=== PATIENT | female | born 1980 | race Caucasian/White ===

== ENCOUNTER 2016-05-02 09:07 | Emergency (ER) | payer OTHER ==
[2016-05-02 09:13] VITALS: BP 127/77; PULSE 76; TEMP 98.6; BMI 27.4
[2016-05-02] MEDS ORDERED: predniSONE 20 MG TABLET (UD) PO ONE (10:20)
[2016-05-02] MEDS ORDERED: RANITIDINE HCL 150 MG TABLET (FP) PO ONE (10:20)
[2016-05-02] MEDS ORDERED: diphenhydrAMINE HCL 25 MG CAPSULE (FP) PO ONE ×2 (10:21→10:24)
[2016-05-02] MEDS ORDERED: predniSONE 20 MG TABLET (UD) ONE (10:24)
[2016-05-02] MEDS ORDERED: RANITIDINE HCL 150 MG TABLET (FP) ONE (10:24)
--- NOTE | 2016-05-02 10:26 | PDOC ---
History of Present Illness - General Chief Complaint: Allergic Reaction Stated Complaint: REACTION ALL OVER BODY Time Seen by Provider: 05/02/16 09:24 History Source: Patient Exam Limitations: No Limitations - History of Present Illness Initial Comments: 05/02/16 10:23 Chief complaint: Generalized rash 3 days itchy History of present illness: Patient is a 35-year-old female with no significant medical history here today complaining of an generalized pruritic rash 3 days. Patient denies any new foods, medications, soaps or any new cosmetics or clothing. Patient reports that this is the first time that she has had a rash like this. Patient denies any difficulty swallowing or breathing, nasal congestion, fever, cough or any other symptoms. Patient denies any chance of had her menstrual cycle last week and is on oral contraceptives. She denies being around any sick contacts or any recent travel. Timing/Duration: constant (3 dayus ) Severity: moderate Associated Symptoms: reports: rash (pruritic rash generalized for 3 days ) Past History - Past Medical History Allergies/Adverse Reactions: Allergies Allergy/AdvReac Type Severity Reaction Status Date / Time No Known Allergies Allergy Verified 05/02/16 09:10 Home Medications: Ambulatory Orders Diphenhydramine HCl [Benadryl -] 25 mg PO Q4H PRN #30 capsule 05/02/16 Prednisone [Deltasone] 20 mg PO BID #8 tablet 05/02/16 Ranitidine [Zantac -] 150 mg PO BID #8 tablet 05/02/16 Other medical history: none - Psycho/Social/Smoking Cessation Hx Anxiety: No Suicidal Ideation: No Smoking History: Never smoked Have you smoked in the past 12 months: No Information on smoking cessation initiated: No Hx Alcohol Use: No Drug/Substance Use Hx: No Substance Use Type: None Review of Systems - Review of Systems Able to Perform ROS?: Yes Constitutional: No: Symptoms Reported HEENTM: No: Symptoms Reported Respiratory: No: Symptoms reported Cardiac (ROS): No: Symptoms Reported ABD/GI: No: Symptoms Reported Musculoskeletal: No: Symptoms Reported Integumentary: Yes: Pruritus, Rash (generalized for 3 days) Neurological: No: Symptoms reported *Physical Exam - Vital Signs Last Vital Signs Temp Pulse Resp BP Pulse Ox 98.6 F 76 18 127/77 100 05/02/16 09:10 05/02/16 09:10 05/02/16 09:10 05/02/16 09:10 05/02/16 09:10 - Physical Exam General Appearance: Yes: Appropriately Dressed HEENT: positive: TMs Normal, Pharyngeal Erythema, Tonsillar Erythema (no uvular deviation ). negative: Tonsillar Exudate Neck: negative: Lymphadenopathy (R), Lymphadenopathy (L) Respiratory/Chest: positive: Lungs Clear, Normal Breath Sounds. negative: Chest Tender, Respiratory Distress Cardiovascular: positive: Regular Rhythm, Regular Rate, S1, S2 Integumentary: positive: Rash (generalized non raised rash ) Neurologic: positive: Alert, Normal Response, Responsive Medical Decision Making - Medical Decision Making 05/02/16 10:25 Patient is a 35-year-old female with no significant medical history here today complaining of an generalized pruritic rash 3 days. Patient denies any new foods, medications, soaps or any new cosmetics or clothing. Patient reports that this is the first time that she has had a rash like this. Patient denies any difficulty swallowing or breathing, nasal congestion, fever, cough or any other symptoms. Patient denies any chance of had her menstrual cycle last week and is on oral contraceptives. She denies being around any sick contacts or any recent travel. Generalized pruritic rash PLAN: Prednisone 60 mg by mouth now then 20 mg twice a day for following 4 days Benadryl 25 mg by mouth now then every 6 hours as needed for itchiness Zantac 150 milligrams by mouth now then twice a day for following 4 days Follow-up with Dr. Boyd ear nose and throat for allergy testing 05/02/16 11:44 feeling better decreased rash and pruritis *DC/Admit/Observation/Transfer Diagnosis at time of Disposition: Urticaria - Discharge Dispostion Disposition: HOME Condition at time of disposition: Stable - Referrals Referrals: Mark Boyd MD [Staff Physician] - - Patient Instructions Additional Instructions: Return to emergency room if any difficulty breathing or swallowing Follow-up with ear nose and throat Dr. Boyd for testing for allergies Patient voiced understanding of discharge instructions and all questions were answered
== END 2016-05-02 11:52 | disposition home or self-care (01) ==
LOC: JERFT 09:07
DX: L50.9 Urticaria, unspecified (principal)
CPT/HCPCS: 87070; 87430; 99281-25

== ENCOUNTER 2017-03-29 13:35 | Inpatient (IN) | payer SELFPAY ==
--- NOTE | 2017-03-29 15:34 | PDOC ---
History of Present Illness - General Chief Complaint: Pain Stated Complaint: VOMITING Time Seen by Provider: 03/29/17 15:17 History Source: Patient - History of Present Illness Initial Comments: 03/29/17 15:31 Patient is a 36 y.o. female with a PMH of PUD who presents to our ED c/o 1 day h /o R flank pain that radiates to her RLQ. Patient endorses associated emesis ( 6x, greenish colored) but denies any dsyuria, hematuria, constipation/diarrhea. Patient's LMP was in February 2017. NKDA Surgical: C/S PMD: None, will refer to IM Clinic 03/29/17 15:35 Past History - Past Medical History Allergies/Adverse Reactions: Allergies Allergy/AdvReac Type Severity Reaction Status Date / Time No Known Allergies Allergy Verified 03/29/17 13:39 Home Medications: Ambulatory Orders Diphenhydramine HCl [Benadryl -] 25 mg PO Q4H PRN #30 capsule 05/02/16 Prednisone [Deltasone] 20 mg PO BID #8 tablet 05/02/16 Ranitidine [Zantac -] 150 mg PO BID #8 tablet 05/02/16 COPD: No GI Disorders: Yes (ULCERS.) - Surgical History Abdominal Surgery: Yes - Suicide/Smoking/Psychosocial Hx Smoking History: Never smoked Have you smoked in the past 12 months: No Hx Alcohol Use: No Drug/Substance Use Hx: No Substance Use Type: None Review of Systems - Review of Systems Constitutional: No: Chills, Fever Respiratory: No: Shortness of Breath Cardiac (ROS): No: Chest Pain ABD/GI: Yes: Vomiting. No: Constipated, Diarrhea, Nausea : No: Burning, Dysuria *Physical Exam - Vital Signs Last Vital Signs Temp Pulse Resp BP Pulse Ox 99.1 F 76 18 133/82 100 03/29/17 13:39 03/29/17 13:39 03/29/17 13:39 03/29/17 13:39 03/29/17 13:39 - Physical Exam General Appearance: Yes: Nourished, Appropriately Dressed Neck: positive: Trachea midline, Supple Respiratory/Chest: positive: Lungs Clear Cardiovascular: positive: S1, S2 Gastrointestinal/Abdominal: positive: Normal Bowel Sounds, Tender (RUQ/RLQ TTP) , Soft Extremity: positive: Normal Capillary Refill, Normal Inspection Neurologic: positive: Fully Oriented, Alert ED Treatment Course - LABORATORY CBC & Chemistry Diagram: 03/29/17 15:36 03/29/17 15:55 Medical Decision Making - Medical Decision Making 03/29/17 15:41 Patient is a 36 y.o. female wiht a PMH of PUD who presents to our ED c/o 1 day h /o R flank pain that radiates to her RLQ w/associated emesis. Initial clinical suspicion for nephrolithiasis, ddx includes ovarian pathology vs. acute abdomen (cholecystitis, appendicitis). Will hydrate + Toradol and reasess. Bedside U/S shows cholelithiasis with normal sized CBD - no posterior wall edema. Formal U/S confirms cholecystitis. Case d/w general surgery. Patient admitted to hospitalist for planned cholecystectomy tomorrow. IV Zosyn + NPO. Patient and patient's family counseled on plan of care. Will continue to monitor patient while in ED. Patient signed out to Dr. Elie Tyler for monitoring while pending transfer to inpatient medicine service. *DC/Admit/Observation/Transfer Diagnosis at time of Disposition: Cholecystitis - Discharge Dispostion Condition at time of disposition: Fair Admit: Yes - Referrals - Patient Instructions - Post Discharge Activity
[2017-03-29] MEDS ORDERED: KETOROLAC TROMETHAMINE 15 MG/ML VIAL IVPUSH ONE (15:36)
[2017-03-29] MEDS ORDERED: SODIUM CHLORIDE 0.9% 1000 ML INFUS.BAG IV ONE (15:39)
[2017-03-29] MEDS ORDERED: KETOROLAC TROMETHAMINE 15 MG/ML VIAL ONE (15:45)
[2017-03-29 16:21] LABS: BASO % 0.4 % (0-2.0); HEMATOCRIT 28.5 % (32.4-45.2); HEMOGLOBIN 8.5 GM/dL (10.7-15.3); LYMPH % 9.1 % (8-40); MEAN CELL VOLUME 62.6 fl (80-96); MEAN PLT VOLUME 8.8 fl (7.5-11.1); MONO % 5.5 % (3.8-10.2); PLATELET COUNT 442 K/MM3 (134-434); RBC 4.55 M/mm3 (3.60-5.2); WHITE BLOOD COUNT 18.8 K/mm3 (4.0-10.0)
[2017-03-29 16:27] LABS: MCH 18.8 pg (25.7-33.7)
[2017-03-29 16:28] LABS: ADD RBC MORPHOLOGY YES
[2017-03-29 16:31] LABS: ANION GAP 10 (8-16); BLOOD UREA NITROGEN 11 mg/dL (7-18); CALCIUM 8.9 mg/dL (8.5-10.1); CHLORIDE 102 mmol/L (98-107); CO2 27 mmol/L (21-32); CREATININE 0.5 mg/dL (0.55-1.02); GLUCOSE,RANDOM 83 mg/dL (74-106); POTASSIUM 3.5 mmol/L (3.5-5.1); SGOT/AST 11 U/L (15-37); SGPT/ALT 27 U/L (12-78); SODIUM 139 mmol/L (136-145)
[2017-03-29 16:33] LABS: ALK PHOS 85 U/L (45-117); BILIRUBIN,TOTAL 0.3 mg/dL (0.2-1.0); TOT PROT 8.1 g/dl (6.4-8.2)
--- NOTE | 2017-03-29 17:03 | PDOC ---
Attending Attestation - Resident Resident Name: Adri Polanco - ED Attending Attestation I have performed the following: I have examined & evaluated the patient, The case was reviewed & discussed with the resident, I agree w/resident's findings & plan, Exceptions are as noted - HPI HPI: 03/29/17 16:55 36 F with h/o PUD presenting to ER with 1 day of RUQ pain radiating to her R flank. Pt reports several episodes of bilious emesis. Denies diarrhea/ constipation. Pt denies dysuria. Denies CP/SOB. Denies F/C. - Physicial Exam PE: 03/29/17 17:26 "GENERAL: Awake, alert, and fully oriented, in no acute distress HEAD: No signs of trauma EYES: PERRLA, EOMI, sclera anicteric, conjunctiva clear ENT: Auricles normal inspection, hearing grossly normal, nares patent, oropharynx clear without exudates. Moist mucosa NECK: Nontender, no stepoffs, Normal ROM, supple, no lymphadenopathy, JVD, or masses LUNGS: Breath sounds equal, clear to auscultation bilaterally. No wheezes, and no crackles HEART: Regular rate and rhythm, normal S1 and S2, no murmurs, rubs or gallops ABDOMEN: + lopez's, nondistended, soft, normoactive bowel sounds, no CVAT EXTREMITIES: Normal range of motion, no edema. No clubbing or cyanosis. No cords, erythema, or tenderness NEUROLOGICAL: Cranial nerves II through XII intact. 5/5 strength and sensation in all extremities, Normal speech, normal gait SKIN: Warm, Dry, normal turgor, no rashes or lesions noted. " - Medical Decision Making 03/29/17 17:27 36 F with RUQ pain + N/V. + lopez's on exam, concerning for cholelithiasis vs cholecystitis. - Labs - RUQ sono 03/29/17 17:53 US shows acute cholecystitis. Surgery consulted Will admit to hospitalist. Pt made NPO, maintenance fluids ordered, Zosyn administered.
[2017-03-29] MEDS ORDERED: PIPERACILLIN/TAZOB 4.5 GM 4.5 GM/100 ML BAG IVPB ONE ×2 (17:52→18:20)
[2017-03-29] MEDS: SODIUM CHLORIDE 1,000 ML IV SCH (18:14)
[2017-03-29 18:55] LABS: URINE APPEARANCE CLEAR; URINE BILIRUBIN NEGATIVE (NEGATIVE); URINE BLOOD NEGATIVE (NEGATIVE); URINE COLOR STRAW; URINE GLUCOSE (UA) NEGATIVE (NEGATIVE); URINE KETONE 1+ (NEGATIVE); URINE LEUK ESTERASE NEGATIVE (NEGATIVE); URINE NITRITE NEGATIVE (NEGATIVE); URINE PROTEIN NEGATIVE (NEGATIVE); URINE UROBILINOGEN NEGATIVE mg/dL (0.2-1.0)
[2017-03-29 18:57] LABS: INR 1.13 (0.82-1.09); PROTHROMBIN TIME (PATIENT) 12.8 SEC (9.98-11.88)
[2017-03-29 19:00] LABS: ACTIVATED PTT 29.9 SECONDS (26.9-34.4)
--- NOTE | 2017-03-29 19:12 | PN ---
Teaching Attending Note Name of Resident: Ann Marie Varela ATTENDING PHYSICIAN STATEMENT I saw and evaluated the patient. I reviewed the resident's note and discussed the case with the resident. I agree with the resident's findings and plan as documented. SUBJECTIVE: 36 yo F with pmhx of PUD who presents with RLQ abdominal pain, which originated in her R. Flank. States she had emesis times six. Denies any fevers or chills. States abdominal pain has improved as did her nausea. No chest pain or pressure. No fevers or chills. OBJECTIVE: Physical: VS: Vital Signs Period Temp Pulse Resp BP Sys/Horner Pulse Ox Last 24 Hr 99.1 F 76 18 133/82 100 GEN: NAD, Resting in bed, AA0X3 HEENT: NCAT, PERRL, throat without erythema or exudates CARD: RRR S1, S2 RESP: CTAB ABD: BSx4, NTD to palpation EXT: - C/C/E CBCD WBC 18.8 K/mm3 (4.0-10.0) H 03/29/17 15:36 RBC 4.55 M/mm3 (3.60-5.2) 03/29/17 15:36 Hgb 8.5 GM/dL (10.7-15.3) L 03/29/17 15:36 Hct 28.5 % (32.4-45.2) L 03/29/17 15:36 MCV 62.6 fl (80-96) L 03/29/17 15:36 MCHC 30.0 g/dl (32.0-36.0) L 03/29/17 15:36 RDW 19.0 % (11.6-15.6) H 03/29/17 15:36 Plt Count 442 K/MM3 (134-434) H 03/29/17 15:36 MPV 8.8 fl (7.5-11.1) 03/29/17 15:36 CMP Sodium 139 mmol/L (136-145) 03/29/17 15:55 Potassium 3.5 mmol/L (3.5-5.1) 03/29/17 15:55 Chloride 102 mmol/L (98-107) 03/29/17 15:55 Carbon Dioxide 27 mmol/L (21-32) 03/29/17 15:55 Anion Gap 10 (8-16) 03/29/17 15:55 BUN 11 mg/dL (7-18) 03/29/17 15:55 Creatinine 0.5 mg/dL (0.55-1.02) L 03/29/17 15:55 Creat Clearance w eGFR > 60 (>60) 03/29/17 15:55 Random Glucose 83 mg/dL (74-106) 03/29/17 15:55 Calcium 8.9 mg/dL (8.5-10.1) 03/29/17 15:55 Total Bilirubin 0.3 mg/dL (0.2-1.0) 03/29/17 15:55 AST 11 U/L (15-37) L 03/29/17 15:55 ALT 27 U/L (12-78) 03/29/17 15:55 Alkaline Phosphatase 85 U/L (45-117) 03/29/17 15:55 Total Protein 8.1 g/dl (6.4-8.2) 03/29/17 15:55 Albumin 4.0 g/dl (3.4-5.0) 03/29/17 15:55 Abd US- Acute Choleycystitis ASSESSMENT AND PLAN: 36 F with pmhx. of PUD who presents with acute choleycystitis 1.) Acute Choleycystitis - NPO - Type & Screen - C/W Zosyn - ID consult - Coags - Cx - Surgical Consult - IVF 2.) Microcytic Anemia - Fe Studies - Transfuse <7 3.) DVT Ppx - Low Risk - Sc[facility] Place in Med- Sx
[2017-03-29 20:13] LABS: ANISOCYTOSIS 2+
[2017-03-29 20:14] LABS: OVALOCYTE 1+; TARGET CELLS 1+
[2017-03-29 20:15] LABS: PLATELET ESTIMATE SLT INCREASE
--- NOTE | 2017-03-29 21:05 | HP ---
CHIEF COMPLAINT: RUQ pain, nausea, vomiting PCP: None HISTORY OF PRESENT ILLNESS: Pt is a 36 y/o F with PMH recently treated gastric ulcer who presented to ED with RUQ pain initially 9/10 radiating to the back constant since 6pm yesterday. Pt had subjective fevers and numerous episodes of green vomit without blood. No other complaints. Denies CP, SOB, dysuria, bloody urine/stools. ER course was notable for: (1) WBC 18, Hb 8.5, plt 442, INR 1.1, UA 1+ ketones, Preg neg (2) U/S suggestive of cholecystitis (3)Pt made NPO, given fluid and zosyn Recent Travel: denies PAST MEDICAL HISTORY: per pt, gastric ulcer PAST SURGICAL HISTORY: none Social History: Smoking: denies Alcohol: denies Drugs: denies Family History: denies Allergies No Known Allergies Allergy (Verified 03/29/17 13:39) HOME MEDICATIONS: Home Medications Medication Instructions Recorded Diphenhydramine HCl [Benadryl -] 25 mg PO Q4H PRN #30 capsule 05/02/16 Prednisone [Deltasone] 20 mg PO BID #8 tablet 05/02/16 Ranitidine [Zantac -] 150 mg PO BID #8 tablet 05/02/16 REVIEW OF SYSTEMS CONSTITUTIONAL: subjective fever, malaise Absent: chills, diaphoresis, generalized weakness, loss of appetite, weight change HEENT: Absent: rhinorrhea, nasal congestion, throat pain, throat swelling, difficulty swallowing, mouth swelling, ear pain, eye pain, visual changes CARDIOVASCULAR: Absent: chest pain, syncope, palpitations, irregular heart rate, lightheadedness , peripheral edema RESPIRATORY: Absent: cough, shortness of breath, dyspnea with exertion, orthopnea, wheezing, stridor, hemoptysis GASTROINTESTINAL:abdominal pain, nausea, vomiting Absent: , abdominal distension, diarrhea, constipation, melena, hematochezia GENITOURINARY: Absent: dysuria, frequency, urgency, hesitancy, hematuria, flank pain, genital pain MUSCULOSKELETAL: Absent: myalgia, arthralgia, joint swelling, back pain, neck pain SKIN: Absent: rash, itching, pallor HEMATOLOGIC/IMMUNOLOGIC: Absent: easy bleeding, easy bruising, lymphadenopathy, frequent infections ENDOCRINE: Absent: unexplained weight gain, unexplained weight loss, heat intolerance, cold intolerance NEUROLOGIC: Absent: headache, focal weakness or paresthesias, dizziness, unsteady gait, seizure, mental status changes, bladder or bowel incontinence PSYCHIATRIC: Absent: anxiety, depression, suicidal or homicidal ideation, hallucinations. PHYSICAL EXAMINATION Vital Signs - 24 hr 03/29/17 13:39 Temperature 99.1 F Pulse Rate 76 Respiratory 18 Rate Blood Pressure 133/82 O2 Sat by Pulse 100 Oximetry (%) GENERAL: Awake, alert, and fully oriented, in no acute distress. HEAD: Normal with no signs of trauma. EYES: Pupils equal, round and reactive to light, extraocular movements intact, sclera anicteric, conjunctiva clear. No lid lag. EARS, NOSE, THROAT: oropharynx clear without exudates. Moist mucous membranes. NECK: Normal range of motion, supple without lymphadenopathy, JVD, or masses. LUNGS: Breath sounds equal, clear to auscultation bilaterally. No wheezes, and no crackles. No accessory muscle use. HEART: Regular rate and rhythm, normal S1 and S2 with 4/6 systolic cresc/ decresc murmur at RUSB, no rub or gallop. ABDOMEN: Soft, mildly tender RUQ, Pena's neg, not distended, normoactive bowel sounds, no guarding, no rebound, no masses. No hepatomegaly or splenomegaly. MUSCULOSKELETAL: Normal range of motion at all joints. No bony deformities or tenderness. No CVA tenderness. UPPER EXTREMITIES: 2+ pulses, warm, well-perfused. No cyanosis. No clubbing. No peripheral edema. LOWER EXTREMITIES: 2+ pulses, warm, well-perfused. No calf tenderness. No peripheral edema. NEUROLOGICAL: Cranial nerves II-XII intact. Normal speech. PSYCHIATRIC: Cooperative. Good eye contact. Appropriate mood and affect. SKIN: Warm, dry, normal turgor, no rashes or lesions noted, normal capillary refill. Laboratory Results - last 24 hr 03/29/17 03/29/17 03/29/17 15:36 15:55 17:10 WBC 18.8 H RBC 4.55 Hgb 8.5 L Hct 28.5 L MCV 62.6 L MCH 18.8 L MCHC 30.0 L RDW 19.0 H Plt Count 442 H MPV 8.8 Neutrophils % 85.0 H Lymphocytes % 9.1 Monocytes % 5.5 Eosinophils % 0.0 Basophils % 0.4 Hypochromia 3+ Platelet Estimate Slt increase Platelet Comment Polychromasia 1+ Poikilocytosis 1+ Anisocytosis 2+ Microcytosis 2+ Target Cells 1+ Ovalocytes 1+ PT with INR INR PTT (Actin FS) Sodium 139 Potassium 3.5 Chloride 102 Carbon Dioxide 27 Anion Gap 10 BUN 11 Creatinine 0.5 L Creat Clearance w eGFR > 60 Random Glucose 83 Calcium 8.9 Total Bilirubin 0.3 AST 11 L ALT 27 Alkaline Phosphatase 85 Total Protein 8.1 Albumin 4.0 Lipase Serum , Qual Negative Urine Color Urine Appearance Urine pH Ur Specific [place] Urine Protein Urine Glucose (UA) Urine Ketones Urine Blood Urine Nitrite Urine Bilirubin Urine Urobilinogen Ur Leukocyte Esterase Blood Type Antibody Screen 03/29/17 03/29/17 03/29/17 17:43 17:43 18:12 WBC RBC Hgb Hct MCV MCH MCHC RDW Plt Count MPV Neutrophils % Lymphocytes % Monocytes % Eosinophils % Basophils % Hypochromia Platelet Estimate Platelet Comment Polychromasia Poikilocytosis Anisocytosis Microcytosis Target Cells Ovalocytes PT with INR 12.80 H INR 1.13 PTT (Actin FS) 29.9 Sodium Potassium Chloride Carbon Dioxide Anion Gap BUN Creatinine Creat Clearance w eGFR Random Glucose Calcium Total Bilirubin AST ALT Alkaline Phosphatase Total Protein Albumin Lipase 94 Serum , Qual Urine Color Urine Appearance Urine pH Ur Specific [place] Urine Protein Urine Glucose (UA) Urine Ketones Urine Blood Urine Nitrite Urine Bilirubin Urine Urobilinogen Ur Leukocyte Esterase Blood Type O POSITIVE Antibody Screen Negative 03/29/17 18:17 WBC RBC Hgb Hct MCV MCH MCHC RDW Plt Count MPV Neutrophils % Lymphocytes % Monocytes % Eosinophils % Basophils % Hypochromia Platelet Estimate Platelet Comment Polychromasia Poikilocytosis Anisocytosis Microcytosis Target Cells Ovalocytes PT with INR INR PTT (Actin FS) Sodium Potassium Chloride Carbon Dioxide Anion Gap BUN Creatinine Creat Clearance w eGFR Random Glucose Calcium Total Bilirubin AST ALT Alkaline Phosphatase Total Protein Albumin Lipase Serum , Qual Urine Color Straw Urine Appearance Clear Urine pH 6.0 Ur Specific [place] 1.008 Urine Protein Negative Urine Glucose (UA) Negative Urine Ketones 1+ H Urine Blood Negative Urine Nitrite Negative Urine Bilirubin Negative Urine Urobilinogen Negative Ur Leukocyte Esterase Negative Blood Type Antibody Screen ASSESSMENT/PLAN: Pt is a 36 y/o F with PMH gastric ulcer who presents to ED with RUQ abdominal pain associated with nausea and vomiting. U/S consistent with acute cholecystitis. #Acute cholecystitis -U/S significant for cholecystitis -lipase negative -CBC -CMP -PT/PTT -CXR -Type and Screen -NPO -NS -Protonix -zosyn in ED -surg consult #fe deficiency -Fe studies -B12, folate #thrombocytosis -likely reactive -will follow #FEN -on NS -lytes wnl -NPO #PPx -No hep in pt possibly going for surg. SCDs #Dispo -Admit to Med/Surg Tim Moody MD PGY-1 IM Visit type - Emergency Visit Emergency Visit: Yes ED Registration Date: 03/29/17 Care time: The patient presented to the Emergency Department on the above date and was hospitalized for further evaluation of their emergent condition. - New Patient This patient is new to me today: Yes Date on this admission: 03/29/17 - Critical Care Critical Care patient: No
[2017-03-29] MEDS ORDERED: FOLIC ACID 1 MG TABLET (FP) PO ONE (22:45)
[2017-03-29] MEDS ORDERED: CYANOCOBALAMIN (VITAMIN B-12) 1000 MCG/1 ML VIAL IM ONE (22:45)
[2017-03-29] MEDS ORDERED: ACETAMINOPHEN 325 MG TABLET (FP) PO PRN (23:15)
[2017-03-30 01:26] VITALS: BMI 26.4
[2017-03-30] MEDS ORDERED: PIPERACILLIN/TAZOB 3.375 GM 50 ML IVPB ONE ×2 (01:38→08:30)
[2017-03-30] MEDS ORDERED: PIPERACILLIN/TAZOB 3.375 GM 3.375 GM in DEXTROSE 5%-WATER - 100 ML IVPB ONE (02:15)
[2017-03-30] MEDS: SODIUM CHLORIDE 1,000 ML IV SCH ×2 (06:07→18:15)
--- NOTE | 2017-03-30 07:28 | MSN ---
Progress Note (short form) - Note Progress Note: Subjective: Patient was seen this morning and has no complaints. Patient denies abdominal pain, chest pain, nausea or vomiting. Patient states she had a little diarrhea. Per nursing, there was no overnight event, patient had a little abdominal pain which was managed with tylenol. Objective: Last Vital Signs Temp Pulse Resp BP Pulse Ox 99.0 F 87 18 118/71 100 03/30/17 06:00 03/30/17 06:00 03/30/17 06:00 03/30/17 06:00 03/29/17 13:39 Intake & Output 03/27/17 03/28/17 03/29/17 03/30/17 23:59 23:59 23:59 23:59 Intake Total 50 1100 Balance 50 1100 Weight 159 lb 1 oz General: Patient is resting comfortably, in no apparent distress HEENT: PERRLA, nose patent, trachea midline, moist mucous membranes. Heart: RRR, no rubs, murmurs or gallops appreciated. Lungs: CTA B/L. No wheezing, crackles or rhonci appreciated. Abdomen: + [place]. Normoactive bowel sounds. Non-distended. Extremities: 2+ B/L on UE and LE. No edema noted. 5/5 strength throughout. CBC, BMP 03/30/17 07:15 03/30/17 07:15 Laboratory Results - last 24 hr 03/29/17 03/29/17 03/29/17 15:36 15:55 17:10 WBC 18.8 H RBC 4.55 Hgb 8.5 L Hct 28.5 L MCV 62.6 L MCH 18.8 L MCHC 30.0 L RDW 19.0 H Plt Count 442 H MPV 8.8 Neutrophils % 85.0 H Lymphocytes % 9.1 Monocytes % 5.5 Eosinophils % 0.0 Basophils % 0.4 Hypochromia 3+ Platelet Estimate Slt increase Platelet Comment Polychromasia 1+ Poikilocytosis 1+ Anisocytosis 2+ Microcytosis 2+ Target Cells 1+ Ovalocytes 1+ PT with INR INR PTT (Actin FS) Sodium 139 Potassium 3.5 Chloride 102 Carbon Dioxide 27 Anion Gap 10 BUN 11 Creatinine 0.5 L Creat Clearance w eGFR > 60 Random Glucose 83 Lactic Acid Calcium 8.9 Total Bilirubin 0.3 AST 11 L ALT 27 Alkaline Phosphatase 85 Total Protein 8.1 Albumin 4.0 Lipase Serum , Qual Negative Urine Color Urine Appearance Urine pH Ur Specific [place] Urine Protein Urine Glucose (UA) Urine Ketones Urine Blood Urine Nitrite Urine Bilirubin Urine Urobilinogen Ur Leukocyte Esterase Blood Type Antibody Screen 03/29/17 03/29/17 03/29/17 17:43 17:43 18:12 WBC RBC Hgb Hct MCV MCH MCHC RDW Plt Count MPV Neutrophils % Lymphocytes % Monocytes % Eosinophils % Basophils % Hypochromia Platelet Estimate Platelet Comment Polychromasia Poikilocytosis Anisocytosis Microcytosis Target Cells Ovalocytes PT with INR 12.80 H INR 1.13 PTT (Actin FS) 29.9 Sodium Potassium Chloride Carbon Dioxide Anion Gap BUN Creatinine Creat Clearance w eGFR Random Glucose Lactic Acid Calcium Total Bilirubin AST ALT Alkaline Phosphatase Total Protein Albumin Lipase 94 Serum , Qual Urine Color Urine Appearance Urine pH Ur Specific [place] Urine Protein Urine Glucose (UA) Urine Ketones Urine Blood Urine Nitrite Urine Bilirubin Urine Urobilinogen Ur Leukocyte Esterase Blood Type O POSITIVE Antibody Screen Negative 03/29/17 03/30/17 18:17 02:00 WBC RBC Hgb Hct MCV MCH MCHC RDW Plt Count MPV Neutrophils % Lymphocytes % Monocytes % Eosinophils % Basophils % Hypochromia Platelet Estimate Platelet Comment Polychromasia Poikilocytosis Anisocytosis Microcytosis Target Cells Ovalocytes PT with INR INR PTT (Actin FS) Sodium Potassium Chloride Carbon Dioxide Anion Gap BUN Creatinine Creat Clearance w eGFR Random Glucose Lactic Acid 0.6 Calcium Total Bilirubin AST ALT Alkaline Phosphatase Total Protein Albumin Lipase Serum , Qual Urine Color Straw Urine Appearance Clear Urine pH 6.0 Ur Specific [place] 1.008 Urine Protein Negative Urine Glucose (UA) Negative Urine Ketones 1+ H Urine Blood Negative Urine Nitrite Negative Urine Bilirubin Negative Urine Urobilinogen Negative Ur Leukocyte Esterase Negative Blood Type Antibody Screen Home Medications Medication Instructions Recorded Diphenhydramine HCl [Benadryl -] 25 mg PO Q4H PRN #30 capsule 05/02/16 Prednisone [Deltasone] 20 mg PO BID #8 tablet 05/02/16 Ranitidine [Zantac -] 150 mg PO BID #8 tablet 05/02/16 Active Medications Acetaminophen (Tylenol -) 325 mg PO Q4H PRN PRN Reason: PAIN OR FEVER Sodium Chloride (Normal Saline -) 1,000 mls @ 100 mls/hr IV ASDIR CARMEN Last Admin: 03/30/17 06:07 Dose: 100 mls/hr Piperacillin/Tazobactam/Dextrose (Zosyn 3.375gm Ivpb (Premix)) 3.375 gm IVPB ONCE ONE Stop: 03/30/17 10:01 Imaging: US abd 03/29/17: acute cholecystitis. calculous 3.2cm. Assessment/ Plan: 36 yo F with a PMH of anemia, gastric ulcer who presented with RUQ abd pain with 6 episodes of nonbilious vomiting was found to have acute calculous cholecystitis on US. # acute calculous cholecystitis - US shows 3.2cm calculous - Dr. Betancourt consulted for surgery - NPO - HIDA scan - coags - IVF NS @100mls/hr - protonix drip. # Microcytic hypochromic anemia- hx of anemia per patient - Fe studies - repeat CBC s/p cholecystectomy - transfuse if Hgb <7 # Thrombocytosis WBC 18.8 on admission - likely due to cholecystitis - continue to monitor #DVT prophylaxis - SCD FEN - fluid: Sodium Chloride (Normal Saline -) 1,000 mls @ 100 mls/hr IV ASDIR CARMEN - electrolyte: wnl - n: NPO due to surgery
[2017-03-30 08:26] LABS: BASO % 0.3 % (0-2.0); EOS % 0.1 % (0-4.5); HEMOGLOBIN 7.5 GM/dL (10.7-15.3); LYMPH % 10.8 % (8-40); MCHC 29.9 g/dl (32.0-36.0); MEAN CELL VOLUME 62.3 fl (80-96); MEAN PLT VOLUME 8.1 fl (7.5-11.1); MONO % 10.4 % (3.8-10.2); NEUT % 78.4 % (42.8-82.8); PLATELET COUNT 367 K/MM3 (134-434); RBC 4.01 M/mm3 (3.60-5.2); RDW 18.9 % (11.6-15.6); WHITE BLOOD COUNT 16.4 K/mm3 (4.0-10.0)
[2017-03-30 08:32] LABS: INR 1.19 (0.82-1.09); PROTHROMBIN TIME (PATIENT) 13.5 SEC (9.98-11.88)
[2017-03-30 08:35] LABS: ACTIVATED PTT 29.1 SECONDS (26.9-34.4)
[2017-03-30 08:39] LABS: ALBUMIN 3.1 g/dl (3.4-5.0); ANION GAP 11 (8-16); BLOOD UREA NITROGEN 7 mg/dL (7-18); CALCIUM 8.1 mg/dL (8.5-10.1); CHLORIDE 106 mmol/L (98-107); CO2 25 mmol/L (21-32); GLUCOSE,RANDOM 91 mg/dL (74-106); MAGNESIUM 1.8 mg/dL (1.8-2.4); PHOSPHOROUS 2.5 mg/dL (2.5-4.9); POTASSIUM 3.2 mmol/L (3.5-5.1); SGOT/AST 8 U/L (15-37); SODIUM 142 mmol/L (136-145)
[2017-03-30 08:42] LABS: ALK PHOS 66 U/L (45-117); BILIRUBIN,TOTAL 0.4 mg/dL (0.2-1.0); CREATININE 0.5 mg/dL (0.55-1.02); SGPT/ALT 20 U/L (12-78); TOT PROT 6.6 g/dl (6.4-8.2)
--- NOTE | 2017-03-30 08:46 | PN ---
Physical Exam: SUBJECTIVE: Patient seen and examined by me this AM - No overnight events. Pt still with RUQ pain, improved today. Multiple episodes of bilious emesis yesterday. No BM overnight, urinating well with no hematuria or pyuria. No other complaints. Denies fever/chills, CP, cough, LAW[place], further episodes of vomiting, diarrhea, constipation, rashes or new neuro symptoms. Pt with no complaints overnight. - Plan for HIDA scan in PM and possible cholecystectomy with Dr. Betancourt OBJECTIVE: Vital Signs Intake & Output 03/27/17 03/28/17 03/29/17 03/30/17 23:59 23:59 23:59 23:59 Intake Total 50 1100 Balance 50 1100 Weight 72.15 kg Period Temp Pulse Resp BP Sys/Horner Pulse Ox Last 24 Hr 99.0 F-100.3 F 76-87 -18 112-133/64-82 100 GENERAL: The patient is awake, alert, and fully oriented, in no acute distress. HEAD: Normal with no signs of trauma. EYES: PERRL, extraocular movements intact, sclera anicteric, conjunctiva clear. No ptosis. ENT: Ears normal, nares patent, oropharynx clear without exudates, moist mucous membranes. NECK: Trachea midline, full range of motion, supple. LUNGS: Breath sounds equal, clear to auscultation bilaterally, no wheezes, no crackles, no accessory muscle use. HEART: Regular rate and rhythm, S1, S2 without murmur, rub or gallop. ABDOMEN: TTP in RUQ. + murphys sign. Mild suprapubic tenderness. Negative rovsings. soft, NT in all other quadrants. Normoactive bowel sounds. No rebound , masses or organomegaly EXTREMITIES: 2+ pulses, warm, well-perfused, no edema. NEUROLOGICAL: Cranial nerves II through XII grossly intact. Normal speech, gait not observed. PSYCH: Normal mood, normal affect. SKIN: Warm, dry, normal turgor, no rashes or lesions noted Laboratory Results - last 24 hr CBC, BMP 03/30/17 07:15 03/29/17 03/29/17 03/29/17 15:36 15:55 17:10 WBC 18.8 H RBC 4.55 Hgb 8.5 L Hct 28.5 L MCV 62.6 L MCH 18.8 L MCHC 30.0 L RDW 19.0 H Plt Count 442 H MPV 8.8 Neutrophils % 85.0 H Lymphocytes % 9.1 Monocytes % 5.5 Eosinophils % 0.0 Basophils % 0.4 Hypochromia 3+ Platelet Estimate Slt increase Platelet Comment Polychromasia 1+ Poikilocytosis 1+ Anisocytosis 2+ Microcytosis 2+ Target Cells 1+ Ovalocytes 1+ PT with INR INR PTT (Actin FS) Sodium 139 Potassium 3.5 Chloride 102 Carbon Dioxide 27 Anion Gap 10 BUN 11 Creatinine 0.5 L Creat Clearance w eGFR > 60 Random Glucose 83 Lactic Acid Calcium 8.9 Phosphorus Magnesium Ferritin Total Bilirubin 0.3 AST 11 L ALT 27 Alkaline Phosphatase 85 Total Protein 8.1 Albumin 4.0 Lipase Serum , Qual Negative Urine Color Urine Appearance Urine pH Ur Specific [place] Urine Protein Urine Glucose (UA) Urine Ketones Urine Blood Urine Nitrite Urine Bilirubin Urine Urobilinogen Ur Leukocyte Esterase Blood Type Antibody Screen 03/29/17 03/29/17 03/29/17 17:43 17:43 18:12 WBC RBC Hgb Hct MCV MCH MCHC RDW Plt Count MPV Neutrophils % Lymphocytes % Monocytes % Eosinophils % Basophils % Hypochromia Platelet Estimate Platelet Comment Polychromasia Poikilocytosis Anisocytosis Microcytosis Target Cells Ovalocytes PT with INR 12.80 H INR 1.13 PTT (Actin FS) 29.9 Sodium Potassium Chloride Carbon Dioxide Anion Gap BUN Creatinine Creat Clearance w eGFR Random Glucose Lactic Acid Calcium Phosphorus Magnesium Ferritin Total Bilirubin AST ALT Alkaline Phosphatase Total Protein Albumin Lipase 94 Serum , Qual Urine Color Urine Appearance Urine pH Ur Specific [place] Urine Protein Urine Glucose (UA) Urine Ketones Urine Blood Urine Nitrite Urine Bilirubin Urine Urobilinogen Ur Leukocyte Esterase Blood Type O POSITIVE Antibody Screen Negative 03/29/17 03/30/17 03/30/17 18:17 02:00 07:15 WBC RBC Hgb Hct MCV MCH MCHC RDW Plt Count MPV Neutrophils % Lymphocytes % Monocytes % Eosinophils % Basophils % Hypochromia Platelet Estimate Platelet Comment Polychromasia Poikilocytosis Anisocytosis Microcytosis Target Cells Ovalocytes PT with INR INR PTT (Actin FS) Sodium 142 Potassium 3.2 L Chloride 106 Carbon Dioxide 25 Anion Gap 11 BUN 7 Creatinine 0.5 L Creat Clearance w eGFR > 60 Random Glucose 91 Lactic Acid 0.6 Calcium 8.1 L Phosphorus 2.5 Magnesium 1.8 Ferritin Total Bilirubin 0.4 D AST 8 L ALT 20 Alkaline Phosphatase 66 Total Protein 6.6 Albumin 3.1 L Lipase Serum , Qual Urine Color Straw Urine Appearance Clear Urine pH 6.0 Ur Specific [place] 1.008 Urine Protein Negative Urine Glucose (UA) Negative Urine Ketones 1+ H Urine Blood Negative Urine Nitrite Negative Urine Bilirubin Negative Urine Urobilinogen Negative Ur Leukocyte Esterase Negative Blood Type Antibody Screen 03/30/17 07:15 WBC RBC Hgb Hct MCV MCH MCHC RDW Plt Count MPV Neutrophils % Lymphocytes % Monocytes % Eosinophils % Basophils % Hypochromia Platelet Estimate Platelet Comment Polychromasia Poikilocytosis Anisocytosis Microcytosis Target Cells Ovalocytes PT with INR INR PTT (Actin FS) Sodium Potassium Chloride Carbon Dioxide Anion Gap BUN Creatinine Creat Clearance w eGFR Random Glucose Lactic Acid Calcium Phosphorus Magnesium Ferritin 3.880 L Total Bilirubin AST ALT Alkaline Phosphatase Total Protein Albumin Lipase Serum , Qual Urine Color Urine Appearance Urine pH Ur Specific [place] Urine Protein Urine Glucose (UA) Urine Ketones Urine Blood Urine Nitrite Urine Bilirubin Urine Urobilinogen Ur Leukocyte Esterase Blood Type Antibody Screen Active Medications Generic Name Dose Route Start Last Admin Trade Name Freq PRN Reason Stop Dose Admin Acetaminophen 325 mg 03/29/17 23:15 Tylenol - PO Q4H PRN PAIN OR FEVER Sodium Chloride 1,000 mls @ 100 mls/hr 03/29/17 18:00 03/30/17 06:07 Normal Saline - IV 100 mls/hr ASDIR CARMEN Administration Piperacillin/Tazobactam/Dextrose 50 mls @ 100 mls/hr 03/30/17 08:30 Zosyn 3.375gm Ivpb (Premix) IVPB 03/30/17 08:59 ONCE ONE No micro EKG 03/29 - NSR, NAD, rate of 76, qtc 416, no st or tw changes RUQ US 03/29 - IMPRESSION: Findings suspicious for acute cholecystitis. Clinical correlation and follow-up recommended. CXR PA/lateral 03/29 - Normal HIDA scan 03/30 - No filling of gallbladder after 60 minutes of imaging. Please note that the study is essentially nondiagnostic due to early completion of the exam at the request of the surgeon. However when correlated with ultrasound of March 29, 2017, findings are suspicious for cystic duct obstruction and acute cholecystitis ASSESSMENT/PLAN: Pt is a 36 y/o F with PMH recently treated gastric ulcer who presented to ED with RUQ pain initially 9/10 radiating to the back constant since 6pm yesterday , and multiple episodes of nonbloody bilious vomiting in AM. #Acute cholecystitis -U/S significant for cholecystitis, lipase nrml 94; zosyn given in ED; febrile to 100.3 - HIDA suggestive of acute GB oobstruction and cholecystitis; will go to surgery with Dr. Betancourt this PM - Post-op management per primary team - Protonix - ID consulted, will adjust abx accordingly; will continue w/ zosyn for now - Trend WBC, fever curve - zofran for N/V #fe deficiency anemia - Microcytic anemia (8.5 hgb, MCV 62) -f/u Fe studies -f/u B12, folate - trend CBC #thrombocytosis - likely Jun, on admission -Daily CBC, trend #Hypokalemia - IV KCL - Repeat BMP PPX Lovenox BID after surgery PPI #FEN NS 100cc Daily BMP NPO pre op, regular diet after Dispo -Admit to Med/Surg Plan discussed with Dr. Rika Olivares, PGY1 Visit type - Emergency Visit Emergency Visit: Yes ED Registration Date: 03/29/17 Care time: The patient presented to the Emergency Department on the above date and was hospitalized for further evaluation of their emergent condition. - New Patient This patient is new to me today: Yes Date on this admission: 03/31/17 - Critical Care Critical Care patient: No
[2017-03-30 08:47] LABS: MCH 18.6 pg (25.7-33.7)
[2017-03-30] MEDS ORDERED: PIPERACIL/TAZOB 3.375 GM 3.375 GM/50 ML PREMIX IVPB ONE (10:00)
--- NOTE | 2017-03-30 10:19 | PN ---
Progress Note (short form) - Note Progress Note: surgery pt seen and examined. full consult to be dictated. feels much better today but still with leukocytosis. u/s consistent with acute cholecystitis but exam is not. cont iv abx. will get hida. further recs to follow. keep npo.
--- NOTE | 2017-03-30 10:30 | EKG ---
Test Reason : Blood Pressure : / mmHG Vent. Rate : 076 BPM Atrial Rate : 076 BPM P-R Int : 154 ms QRS Dur : 072 ms QT Int : 370 ms P-R-T Axes : 013 074 -01 degrees QTc Int : 416 ms NORMAL SINUS RHYTHM SEPTAL INFARCT , AGE UNDETERMINED ABNORMAL ECG NO PREVIOUS ECGS AVAILABLE Confirmed by JOE GAN, MELLISA ([id number]) on 03/30/2017 10:29:49 AM Referred By: Confirmed By:MELLISA DIAZ MD
[2017-03-30] MEDS ORDERED: PANTOPRAZOLE SODIUM 40 MG VIAL IVPUSH SCH (11:30)
--- NOTE | 2017-03-30 12:12 | CONS ---
DATE OF CONSULTATION: 03/30/2017 REASON FOR CONSULTATION: Acute cholecystitis, cholelithiasis. This is an emergency room consultation as requested by the emergency room physician. The patient was subsequently admitted to the medical floor and is being seen and examined there. BRIEF HISTORY: This is a 36-year-old female who presents with severe right-sided abdominal pain with an episode of nonbloody vomit. While in the emergency room, she was noted to have an elevated white blood cell count. She had an ultrasound done, which was suggestive of an acute cholecystitis. She was admitted to the hospital with the diagnosis of acute cholecystitis. She was started on Zosyn antibiotic, given Toradol for pain. Overnight, she feels somewhat better. She no longer has right upper quadrant pain except on deep inspiration. She denies diarrhea. Denies blood in her stool. Denies blood in her vomit. She had a low-grade fever last night but none this morning, but her white blood cell count remains elevated at 16,000 today when it was 18 yesterday. PAST MEDICAL HISTORY: Significant for peptic ulcer disease. PAST SURGICAL HISTORY: Nil. SOCIAL HISTORY: Negative for alcohol. Negative for tobacco. FAMILY HISTORY: Negative for malignancy in the immediate family. ALLERGIES: She has no known drug allergies. HOME MEDICATIONS: Have been reviewed. She currently appears to be on prednisone. It is unclear why. REVIEW OF SYSTEMS: General: Denies fatigue or malaise. Cardiac: Denies chest pain or palpitations. Respiratory: Denies shortness of breath or wheeze. Gastrointestinal: As in HPI. Genitourinary: Denies dysuria. Musculoskeletal: Denies joint pain, joint swelling. Psychiatric: Denies anxiety, depression, or hearing voices. PHYSICAL EXAMINATION: General: This is a well-developed, well-nourished 36-year-old female who appears to be well. HEENT: Her head is normocephalic. Her sclerae are anicteric. Neck: Supple. Chest: Clear. Abdomen: Soft. There is currently no obvious right upper quadrant tenderness. The right upper quadrant appears to be soft and nontender without distention or guarding. Extremities: No edema. Skin: There are no surgical scars. LABORATORY: On review of her laboratory, white blood cell count is elevated at 16,000. Her chemistries are unremarkable. Her urinalysis is unremarkable. On review of her imaging, she has an ultrasound of her abdomen, which shows findings suspicious of acute cholecystitis with fluid around the gallbladder, a stone wedged in the neck of the gallbladder, a positive sonographic Pena sign, and a thick-walled gallbladder that is distended. There is no dilatation of the common bile duct. ASSESSMENT: A 36-year-old female who presented with severe right upper quadrant pain, nausea, vomiting, leukocytosis, and ultrasound evidence of acute cholecystitis. Currently she feels well without pain and a benign abdominal exam. Her white blood cell count, however, is still elevated. At this point, we will get a HIDA scan to try to sort the discordance between the physical exam findings and the ultrasound findings. If the HIDA is positive, we will likely move in the direction of cholecystectomy. The patient also received Toradol and has a history of peptic ulcer disease and may be on steroids as well. Therefore, I would recommend a proton pump inhibitor. It is also possible that her diagnosis is actually a gastritis or a peptic ulcer disease and not cholecystitis, which is why the HIDA scan would be helpful. The patient currently is nontoxic. I will follow the patient with you. I would keep her n.p.o. today. DO JIMENEZ HARDY/[id number]
[2017-03-30] MEDS ORDERED: MIDAZOLAM HCL 2 MG/2 ML SINGLE DOSE VIAL ONE (14:23)
[2017-03-30] MEDS ORDERED: ROCURONIUM BROMIDE 50 MG/5 ML VIAL ONE (14:23)
[2017-03-30] MEDS ORDERED: PROPOFOL 20 ML ONE (14:23)
[2017-03-30] MEDS ORDERED: ONDANSETRON 4 MG/2 ML VIAL IVPUSH PRN (14:35)
[2017-03-30] MEDS ORDERED: oxyCODONE HCL 5 MG TABLET PO PRN (14:35)
[2017-03-30] MEDS ORDERED: HYDROmorphone HCL CARPU-JECT 1 MG/1 ML DISP.SYRIN IVPB PRN (14:37)
[2017-03-30] MEDS ORDERED: DEXAMETHASONE SOD PHOSPHATE 4 MG/1 ML VIAL ONE (15:20)
[2017-03-30] MEDS ORDERED: NEOSTIGMINE METHYLSULFATE 0.5 MG/ML - 10 ML MDV ONE (15:30)
[2017-03-30] MEDS ORDERED: GLYCOPYRROLATE 0.2 MG/1 ML VIAL ONE (15:30)
--- NOTE | 2017-03-30 15:47 | OP ---
Operative Note - Note: Operative Date: 03/30/17 Pre-Operative Diagnosis: acute cholecystitis, cholelithiasis Operation: laparoscopic cholecystectomy, lavage Findings: hydrops, acute cholecystitis Post-Operative Diagnosis: Same as Pre-op Surgeon: Mark Betancourt Anesthesiologist/PURE PAK MACHINE OPERATOR: Keiry Tello Anesthesia: General Specimens Removed: gb Estimated Blood Loss (mls): 30
[2017-03-30] MEDS ORDERED: IBUPROFEN 800 MG/8 ML IJ IVPB PRN (15:57)
--- NOTE | 2017-03-30 15:59 | CON.ID ---
Consult Consult Specialty:: infectious disease Reason for Consultation:: choleycystitis - History of Present Illness Chief Complaint: abd pain History of Present Illness: 36 y/o F with PMH recently treated gastric ulcer who presented to ED with RUQ pain initially 9/10 radiating to the back constant since 6pm yesterday. Pt had subjective fevers and numerous episodes of green vomit without blood. patient was seen and found to have choley and is going to be operated - History Source History Provided By: Patient, Medical Record Limitations to Obtaining History: Language Barrier - Past Medical History ...LMP: 03/01/18 ...: No - Alcohol/Substance Use Hx Alcohol Use: No - Smoking History Smoking history: Never smoked Have you smoked in the past 12 months: No Home Medications - Allergies Allergies/Adverse Reactions: Allergies Allergy/AdvReac Type Severity Reaction Status Date / Time No Known Allergies Allergy Verified 03/29/17 13:39 - Home Medications Home Medications: Ambulatory Orders Ferrous Sulfate [Feosol] 325 mg PO DAILY #30 tablet 04/01/17 Review of Systems - Review of Systems Constitutional: reports: Fever, Loss of Appetite Eyes: reports: No Symptoms HENT: reports: No Symptoms Neck: reports: No Symptoms Cardiovascular: reports: No Symptoms Respiratory: reports: No Symptoms Gastrointestinal: reports: Abdominal Pain, Vomiting Genitourinary: reports: No Symptoms Musculoskeletal: reports: No Symptoms Integumentary: reports: No Symptoms Neurological: reports: No Symptoms Endocrine: reports: No Symptoms Hematology/Lymphatic: reports: No Symptoms Psychiatric: reports: No Symptoms Physical Exam Vital Signs: Vital Signs Temperature 99.0 F 03/30/17 14:48 Pulse Rate 85 03/30/17 14:48 Respiratory Rate 20 03/30/17 14:48 Blood Pressure 108/69 03/30/17 14:48 O2 Sat by Pulse Oximetry (%) 99 03/30/17 09:00 Constitutional: Yes: Well Nourished, Calm Eyes: Yes: Conjunctiva Clear Neck: Yes: Supple, Trachea Midline Cardiovascular: Yes: Regular Rate and Rhythm Respiratory: Yes: Regular, CTA Bilaterally Gastrointestinal: Yes: Tenderness Musculoskeletal: Yes: WNL Extremities: Yes: WNL Neurological: Yes: Alert, Oriented Psychiatric: Yes: Alert, Oriented Labs: CBC, BMP 03/30/17 07:15 03/30/17 07:15 Imaging - Results Chest X-ray: Report Reviewed, Image Reviewed Ultrasound: Report Reviewed, Image Reviewed Assessment/Plan l cholecystitis abd pain plan surgery abx rest as per surgery
[2017-03-30] MEDS ORDERED: PIPERACILLIN/TAZOB 3.375 GM/50 ML PRE-DOCKED IVPB SCH (16:00)
[2017-03-30] MEDS ORDERED: LACTATED RINGERS SOLUTION 1,000 ML IV SCH (16:00)
--- NOTE | 2017-03-30 16:59 | OP ---
DATE OF OPERATION: 03/30/2017 PREOPERATIVE DIAGNOSES: Acute cholecystitis, cholelithiasis. POSTOPERATIVE DIAGNOSES: Acute cholecystitis, cholelithiasis. PROCEDURE: Laparoscopic cholecystectomy, lavage. SURGEON: Mark Betancourt DO BAG MACHINE TENDER: None. ANESTHESIOLOGIST: Keiry Tello MD (general) BRIEF HISTORY: This is a 36-year-old female who presented to [facility] Emergency Room with signs and symptoms of acute cholecystitis. She was also noted to have an elevated white blood cell count. Ultrasound and HIDA scan were consistent with acute cholecystitis. Patient did not appear to be responding to medical management and presents now for surgery. She was already on Zosyn antibiotic. DESCRIPTION OF PROCEDURE: The patient was placed in supine position. After general anesthesia was initiated, the abdomen was prepped and draped in sterile fashion. A transverse incision was made infraumbilical with scalpel, used to go through the skin and subcutaneous tissue. Of note, the patient had a ventral hernia above this incision which was not addressed at the time of surgery. Next, the fascia was lifted with Otilia clamp. Veress needle was inserted; pneumoperitoneum was created, followed by insertion of an 11-mm trocar. Next, a 10-mm 0-degree laparoscope was placed, followed by insertion of an addition 11-mm trocar subxiphoid and two 5- mm trocars in the right upper quadrant. Attention was then turned toward the gallbladder. It was white, distended, and inflamed, consistent with hydrops. A Veress needle decompression was done of the gallbladder in order to enable grasping. The fundus was then lifted cephalad. The infundibulum retracted laterally. The peritoneum was dissected out, exposing a small cystic duct and cystic artery. Both were clipped and divided. There was significant edema around the gallbladder consistent with acute cholecystitis. The gallbladder was then liberated from the liver bed using electrocautery and sharp dissection. Hemostasis was maintained using electrocautery. The gallbladder was then placed in a specimen bag, removed through the infraumbilical trocar site. A significant fascial dilatation and skin lengthening was required in order to deliver such a thickened gallbladder with a large stone. Next, a limited lavage was done, and all return was clear. Trocars were removed under direct visualization. No bleeding was noted. The infraumbilical trocar site was then closed with multiple interrupted 0 Vicryl sutures after pneumoperitoneum was released, and the hernia above this was not addressed. The 4 skin incisions were closed with thaddeus, and Dermabond dressing was placed. Overall, the patient tolerated the procedure well. Blood loss was approximately 30 mL. The patient' s disposition was to recovery room in stable condition. No drains were used. DO JIMENEZ HARDY/[id number] MTDD
--- NOTE | 2017-03-30 17:10 | PN ---
Teaching Attending Note Name of Resident: Low Olivares ATTENDING PHYSICIAN STATEMENT I saw and evaluated the patient. I reviewed the resident's note and discussed the case with the resident. I agree with the resident's findings and plan as documented. SUBJECTIVE:states pain mostly resolved. denies Cp, SOB, fever, chills, N/V/C/D. does have heavy menses lasting 7-8 days. LMP last month. has hx of PUD was treated with PPI for 2 weeks last year. never followed up with doctor. does not recall taking abx or having something known as HPylori OBJECTIVE: Last Vital Signs Temp Pulse Resp BP Pulse Ox 99.0 F 85 20 108/69 99 03/30/17 14:48 03/30/17 14:48 03/30/17 14:48 03/30/17 14:48 03/30/17 09:00 General NAD CV S1 S2 RRR no murmur/rub/gallop Lungs CTA B/L no wheezing/rales/rhonchi Abdomen Soft NT/ND obese ASSESSMENT AND PLAN: 36yo F wtih PMH PUD presented to the ER with abdominal pain 1. Acute Cholecystitis- Tm 100.3. on Zosyn day2. Plan for HIDA scan today and then likely will require cholecsytectomy. GI and surgery on board. pain control 2. Microcytic anemia- likely dilutional component. no signs of bleeding. repeat Hgb today. iron studies pending. 3. Hypokalemia- Kcl IV 4. Thrombocytosis- likely reactive. now resolved 5. PUD- re-start ppi while here. unclear why on steroids. will hold 6. DVT ppx- EAM
[2017-03-30] MEDS: PIPERACILLIN/TAZOB 3.375 GM 3.375 GM in DEXTROSE 5%-WATER - 100 ML IVPB SCH (17:30)
[2017-03-30] MEDS ORDERED: PIPERACILLIN/TAZOB 3.375 GM 3.375 GM in DEXTROSE 5%-WATER - 100 ML IVPB SCH (18:00)
[2017-03-30 18:43] LABS: BASO % 0.3 % (0-2.0); HEMATOCRIT 24.3 % (32.4-45.2); HEMOGLOBIN 7.2 GM/dL (10.7-15.3); LYMPH % 5.7 % (8-40); MCHC 29.6 g/dl (32.0-36.0); MEAN CELL VOLUME 63.2 fl (80-96); MEAN PLT VOLUME 8.8 fl (7.5-11.1); MONO % 4.1 % (3.8-10.2); NEUT % 89.9 % (42.8-82.8); PLATELET COUNT 342 K/MM3 (134-434); RBC 3.84 M/mm3 (3.60-5.2); RDW 19.3 % (11.6-15.6); WHITE BLOOD COUNT 15.4 K/mm3 (4.0-10.0)
[2017-03-30 18:46] LABS: MCH 18.7 pg (25.7-33.7)
[2017-03-30] MEDS: PANTOPRAZOLE SODIUM 40 MG VIAL IVPUSH SCH (21:42)
[2017-03-31] MEDS: PIPERACILLIN/TAZOB 3.375 GM 3.375 GM in DEXTROSE 5%-WATER - 100 ML IVPB SCH ×2 (03:04→10:30)
--- NOTE | 2017-03-31 05:31 | PN ---
Physical Exam: SUBJECTIVE: Patient seen and examined by me this AM - Pt complaining only of mild surgical site tenderness. No VENCES/dizziness, CP, SOB , diarrhea, bleeding, fevers/chills/rigors. No BM/flatus yet post-op. Will likely need blood per d/c. OBJECTIVE: Vital Signs Intake & Output 03/28/17 03/29/17 03/30/17 03/31/17 23:59 23:59 23:59 23:59 Intake Total 50 2500 Output Total 1005 Balance 50 1495 Weight 72.15 kg Period Temp Pulse Resp BP Sys/Horner Pulse Ox Last 24 Hr 99.0 F-100.3 F 72-101 12-22 105-118/57-71 99-100 GENERAL: The patient is awake, alert, and fully oriented, in no acute distress. HEAD: Normal with no signs of trauma. EYES: PERRL, extraocular movements intact, sclera anicteric, conjunctiva clear. No ptosis. ENT: Ears normal, nares patent, oropharynx clear without exudates, moist mucous membranes. NECK: Trachea midline, full range of motion, supple. LUNGS: Breath sounds equal, clear to auscultation bilaterally, no wheezes, no crackles, no accessory muscle use. HEART: Regular rate and rhythm, S1, S2 without murmur, rub or gallop. ABDOMEN: Slightly distended, abdominal surgical incisions noted c/d/i. Soft, NT. Normoactive bowel sounds. No rebound, masses or organomegaly EXTREMITIES: 2+ pulses, warm, well-perfused, no edema. NEUROLOGICAL: Cranial nerves II through XII grossly intact. Normal speech, gait not observed. PSYCH: Normal mood, normal affect. SKIN: Warm, dry, normal turgor, no rashes or lesions noted Laboratory Results - last 24 hr CBC, BMP 03/30/17 18:00 03/30/17 07:15 03/30/17 03/30/17 03/30/17 07:15 07:15 07:15 WBC 16.4 H RBC 4.01 Hgb 7.5 L D Hct 25.0 L MCV 62.3 L MCH 18.6 L MCHC 29.9 L RDW 18.9 H Plt Count 367 MPV 8.1 Neutrophils % 78.4 Lymphocytes % 10.8 Monocytes % 10.4 H D Eosinophils % 0.1 D Basophils % 0.3 PT with INR 13.50 H INR 1.19 H PTT (Actin FS) 29.1 Sodium 142 Potassium 3.2 L Chloride 106 Carbon Dioxide 25 Anion Gap 11 BUN 7 Creatinine 0.5 L Creat Clearance w eGFR > 60 Random Glucose 91 Calcium 8.1 L Phosphorus 2.5 Magnesium 1.8 Ferritin Total Bilirubin 0.4 D AST 8 L ALT 20 Alkaline Phosphatase 66 Total Protein 6.6 Albumin 3.1 L 03/30/17 03/30/17 07:15 18:00 WBC 15.4 H RBC 3.84 Hgb 7.2 L Hct 24.3 L MCV 63.2 L MCH 18.7 L MCHC 29.6 L RDW 19.3 H Plt Count 342 MPV 8.8 Neutrophils % 89.9 H Lymphocytes % 5.7 L D Monocytes % 4.1 Eosinophils % 0.0 D Basophils % 0.3 PT with INR INR PTT (Actin FS) Sodium Potassium Chloride Carbon Dioxide Anion Gap BUN Creatinine Creat Clearance w eGFR Random Glucose Calcium Phosphorus Magnesium Ferritin 3.880 L Total Bilirubin AST ALT Alkaline Phosphatase Total Protein Albumin Active Medications Generic Name Dose Route Start Last Admin Trade Name Freq PRN Reason Stop Dose Admin Enoxaparin Sodium 40 mg 03/31/17 10:00 Lovenox - SQ DAILY [facility] Fentanyl 50 mcg 03/30/17 15:57 03/30/17 16:10 Sublimaze Injection - IVPUSH 50 mcg [id number] PRN Administration PAIN-PACU ORDER X 4 DOSES ONLY Hydromorphone HCl 0.5 mg 03/30/17 14:37 Dilaudid Injection - IVPB Q3H PRN PAIN LEVEL 6-10 Sodium Chloride 1,000 mls @ 100 mls/hr 03/30/17 16:29 03/30/17 18:15 Normal Saline - IV 0 mls ASDIR [facility] Administration Piperacillin Sod/Tazobactam 100 mls @ 200 mls/hr 03/30/17 18:00 03/31/17 03: 04 Sod 3.375 gm/ Dextrose IVPB 03/31/17 09:29 200 mls/hr Q6H-IV [facility] Administration Ibuprofen 800 mg 03/30/17 15:57 03/30/17 16:20 Caldolor Injection - IVPB 800 mg Q6H PRN Administration Pain - Pacu Ondansetron HCl 4 mg 03/30/17 14:35 Zofran Injection IVPUSH Q6H PRN NAUSEA Oxycodone HCl 7.5 mg 03/30/17 14:35 Roxicodone - PO Q4H PRN PAIN LEVEL 1-5 Pantoprazole Sodium 40 mg 03/30/17 22:00 03/30/17 21:42 Protonix Iv IVPUSH 40 mg BID CARMEN Administration Piperacillin Sod/Tazobactam Sod 3.375 gm 03/30/17 16:00 Zosyn 3.375gm Ivpb (Pre-Docked) IVPB Q6H [facility] Protocol No micro EKG 03/29 - NSR, NAD, rate of 76, qtc 416, no st or tw changes RUQ US 03/29 - IMPRESSION: Findings suspicious for acute cholecystitis. Clinical correlation and follow-up recommended. CXR PA/lateral 03/29 - Normal HIDA scan 03/30 - No filling of gallbladder after 60 minutes of imaging. Please note that the study is essentially nondiagnostic due to early completion of the exam at the request of the surgeon. However when correlated with ultrasound of March 29, 2017, findings are suspicious for cystic duct obstruction and acute cholecystitis ASSESSMENT/PLAN: Pt is a 36 y/o F with PMH recently treated gastric ulcer who presented to ED with RUQ pain initially 9/10 radiating to the back constant since 6pm yesterday , and multiple episodes of nonbloody bilious vomiting in AM. #Acute cholecystitis -U/S significant for cholecystitis, lipase nrml 94; zosyn given in ED; febrile to 100.3 - POD1 lap allie; pt doing well - Post-op management per surgical team - Protonix - d/c zosyn - Trend WBC, fever curve - zofran for N/V - Pain control - ISS #fe deficiency anemia - Microcytic anemia (8.5 hgb, MCV 62) -f/u Fe studies -f/u B12, folate - transfuse 1unit prbcs - minimal bleeding noted intraoperatively - Will require IV venofer as inpt, PO iron supps as outpt - trend CBC - Recommend outpt mast maker f/u for menstrual bleeding -Obstetrician And Gynaecologist about stool color on iron supplements, constipation #thrombocytosis - likely reactive, 442 on admission -Daily CBC, trend #Hypokalemia - KCl PO - Repeat BMP PPX Lovenox BID after surgery PO PPI #FEN PO hydration Daily BMP Clears Dispo -Admit to Med/Surg Plan discussed with Dr. Rika Olivares, PGY1 Visit type - Emergency Visit Emergency Visit: Yes ED Registration Date: 03/29/17 Care time: The patient presented to the Emergency Department on the above date and was hospitalized for further evaluation of their emergent condition. - New Patient This patient is new to me today: No - Critical Care Critical Care patient: No
[2017-03-31 06:30] LABS: SERUM IRON SATURATION 3 % (15-55); TOTAL IRON BINDING CAPACITY 361 ug/dL (250-450); UIBC 351 ug/dL (131-425)
--- NOTE | 2017-03-31 06:52 | MSN ---
Progress Note (short form) - Note Progress Note: Subjective: Patient is doing well. Complains of mild epigastric pain when she takes a deep breath and when she uses the bathroom. She has been eating without abd pain/ nausea/ vomiting. Denies nausea/ vomiting/ diarrhea. Objective: Last Vital Signs Temp Pulse Resp BP Pulse Ox 98.9 F 81 18 102/63 100 03/31/17 05:31 03/31/17 05:31 03/31/17 05:31 03/31/17 05:31 03/30/17 19:11 General: Patient is resting comfortably on her bed. In no acute distress HEENT: PERRLA. Trachea midline. Heart: RRR. no murmurs, rubs or gallops appreciated. Lungs: CTA B/L. No wheezing, crackles or rhonci appreciated. Abdomen: normoactive bowel sounds x4. pain on palpation of the epigastric and LUQ. surgical sites non-draining, non-infected Extremities: well perfused. 2+ pulses on UE and LE. no edema noted. CBC, BMP 03/30/17 18:00 03/30/17 07:15 CBC, BMP 03/31/17 08:30 03/31/17 08:30 Laboratory Results - last 24 hr 03/30/17 03/30/17 03/30/17 07:15 07:15 07:15 WBC 16.4 H RBC 4.01 Hgb 7.5 L D Hct 25.0 L MCV 62.3 L MCH 18.6 L MCHC 29.9 L RDW 18.9 H Plt Count 367 MPV 8.1 Neutrophils % 78.4 Lymphocytes % 10.8 Monocytes % 10.4 H D Eosinophils % 0.1 D Basophils % 0.3 PT with INR 13.50 H INR 1.19 H PTT (Actin FS) 29.1 Sodium 142 Potassium 3.2 L Chloride 106 Carbon Dioxide 25 Anion Gap 11 BUN 7 Creatinine 0.5 L Creat Clearance w eGFR > 60 Random Glucose 91 Calcium 8.1 L Phosphorus 2.5 Magnesium 1.8 Iron TIBC Iron Saturation Ferritin Total Bilirubin 0.4 D AST 8 L ALT 20 Alkaline Phosphatase 66 Total Protein 6.6 Albumin 3.1 L 03/30/17 03/30/17 03/30/17 07:15 07:15 18:00 WBC 15.4 H RBC 3.84 Hgb 7.2 L Hct 24.3 L MCV 63.2 L MCH 18.7 L MCHC 29.6 L RDW 19.3 H Plt Count 342 MPV 8.8 Neutrophils % 89.9 H Lymphocytes % 5.7 L D Monocytes % 4.1 Eosinophils % 0.0 D Basophils % 0.3 PT with INR INR PTT (Actin FS) Sodium Potassium Chloride Carbon Dioxide Anion Gap BUN Creatinine Creat Clearance w eGFR Random Glucose Calcium Phosphorus Magnesium Iron 10 L TIBC 361 Iron Saturation 3 L Ferritin 3.880 L Total Bilirubin AST ALT Alkaline Phosphatase Total Protein Albumin Current Medications Enoxaparin Sodium (Lovenox -) 40 mg SQ DAILY [facility] Last Admin: 03/31/17 10:29 Dose: 40 mg Fentanyl (Sublimaze Injection -) 50 mcg IVPUSH [id number] PRN PRN Reason: PAIN-PACU ORDER X 4 DOSES ONLY Last Admin: 03/30/17 16:10 Dose: 50 mcg Hydromorphone HCl (Dilaudid Injection -) 0.5 mg IVPB Q3H PRN PRN Reason: PAIN LEVEL 6-10 Sodium Chloride (Normal Saline -) 1,000 mls @ 100 mls/hr IV ASDIR [facility] Last Admin: 03/30/17 18:15 Dose: 0 mls Iron Sucrose 200 mg/ Sodium (Chloride) 100 mls @ 100 mls/hr IVPB ONCE ONE Stop: 03/31/17 12:59 Ibuprofen (Caldolor Injection -) 800 mg IVPB Q6H PRN PRN Reason: Pain - Pacu Last Admin: 03/30/17 16:20 Dose: 800 mg Ondansetron HCl (Zofran Injection) 4 mg IVPUSH Q6H PRN PRN Reason: NAUSEA Oxycodone HCl (Roxicodone -) 7.5 mg PO Q4H PRN PRN Reason: PAIN LEVEL 1-5 Pantoprazole Sodium (Protonix Iv) 40 mg IVPUSH BID [facility] Last Admin: 03/31/17 10:29 Dose: 40 mg Piperacillin Sod/Tazobactam Sod (Zosyn 3.375gm Ivpb (Pre-Docked)) 3.375 gm IVPB Q6H [facility] PRN Reason: Protocol Imaging: US abd 03/29/17: acute cholecystitis. calculous 3.2cm. Hida scan 03/30/17: suspicious for cystic duct obstruction and acute cholecystitis. Assessment/ Plan: 36 yo F with a PMH of anemia, gastric ulcer who presented with RUQ abd pain with 6 episodes of nonbilious vomiting was found to have acute calculous cholecystitis on US. # acute calculous cholecystitis - US shows 3.2cm calculous -s/p cholecystectomy on 03/30/17 - oxycodone, dilaudid, ibuprofen prn pain - coags - protonix drip. - zosyn Ivpd # Microcytic hypochromic anemia- hx of anemia per patient - Fe studies shows low iron -IV supplement today. oral supplement on d/c - transfuse 1 pack Hgb 7. repeat CBC 1 hr after # Thrombocytosis WBC 18.8 on admission - trending down - WBC 15.4 today - likely reactive from surgery - continue to monitor #DVT prophylaxis - SCD - lovenox FEN - fluid: PO - electrolyte: low K+ replete - n: PO diet as tolerated
[2017-03-31 09:12] LABS: BASO % 0.3 % (0-2.0); EOS % 0.1 % (0-4.5); HEMATOCRIT 23.4 % (32.4-45.2); LYMPH % 18.8 % (8-40); MCHC 29.8 g/dl (32.0-36.0); MEAN CELL VOLUME 62.9 fl (80-96); MEAN PLT VOLUME 8.3 fl (7.5-11.1); MONO % 10.2 % (3.8-10.2); NEUT % 70.6 % (42.8-82.8); PLATELET COUNT 327 K/MM3 (134-434); RBC 3.72 M/mm3 (3.60-5.2); RDW 19.5 % (11.6-15.6); WHITE BLOOD COUNT 14.7 K/mm3 (4.0-10.0)
[2017-03-31 09:19] LABS: MCH 18.7 pg (25.7-33.7)
[2017-03-31 09:39] LABS: ALBUMIN 2.8 g/dl (3.4-5.0); ANION GAP 8 (8-16); BILIRUBIN,TOTAL 0.6 mg/dL (0.2-1.0); BLOOD UREA NITROGEN 9 mg/dL (7-18); CALCIUM 7.9 mg/dL (8.5-10.1); CHLORIDE 109 mmol/L (98-107); CO2 26 mmol/L (21-32); CREATININE 0.5 mg/dL (0.55-1.02); GLUCOSE,RANDOM 83 mg/dL (74-106); POTASSIUM 3.3 mmol/L (3.5-5.1); SGOT/AST 25 U/L (15-37); SGPT/ALT 38 U/L (12-78); SODIUM 143 mmol/L (136-145)
[2017-03-31 09:40] LABS: ALK PHOS 64 U/L (45-117)
[2017-03-31] MEDS ORDERED: PT OWN MED DRAWER 7, Y5N ONE (10:07)
[2017-03-31] MEDS: PANTOPRAZOLE SODIUM 40 MG VIAL IVPUSH SCH (10:29)
[2017-03-31] MEDS: ENOXAPARIN NA (PORCINE) 40 MG/0.4 ML DISP.SYRIN SQ SCH (10:29)
[2017-03-31] MEDS ORDERED: POTASSIUM CHLORIDE TABS 20 MEQ TABLET.ER (FP) PO ONE (11:45)
[2017-03-31] MEDS ORDERED: IRON SUCROSE INJECTION 200 MG in SODIUM CHLORIDE 90 ML IVPB ONE (12:00)
[2017-03-31] MEDS ORDERED: POTASSIUM CHLORIDE ORAL LIQUID 20 MEQ/15 ML PO ONE (12:50)
--- NOTE | 2017-03-31 12:51 | PN ---
Teaching Attending Note Name of Resident: Low Olivares ATTENDING PHYSICIAN STATEMENT I saw and evaluated the patient. I reviewed the resident's note and discussed the case with the resident. I agree with the resident's findings and plan as documented. SUBJECTIVE:cont abdominal discomfort. tolerating diet. +flatus no BM. dneies CP , SOB, fever, chills, bleeding, BRBPR or melena OBJECTIVE: Last Vital Signs Temp Pulse Resp BP Pulse Ox 98.9 F 81 18 102/63 100 03/31/17 05:31 03/31/17 05:31 03/31/17 05:03/31/17 05:03/30/17 19:11 General NAD CV S1 S2 RRR no murmur/rub/gallop Lungs CTA B/L no wheezing/rales/rhonchi Abdomen Soft slightly distended surgical incisions iwth thaddeus in place. mild tenderness surrounding them ASSESSMENT AND PLAN: 36yo F [facility] PUD presented to the ER with abdominal pain 1. Acute Cholecystitis- s/p laprascopic cholecystectomy 03/30. no complications. was on zosyn pre-operatively., can d/c now. f/u surgery recommendations. pain control. 2. Acute iron deficiency anemia- no signs of bleeding. reported minimal bleeding during surgery. will txn 1 unit PRBC. severely iron deficient. will give venofer x1 and need to go home on oral supplementation. counselled on side effects of constipation and black stools. recommended to f/u [facility] [employer] for further evaluation of menohrrhagia. menses scheduled for next week. 3. Hypokalemia- Kcl po 4. Thrombocytosis- likely reactive. now resolved 5. PUD- switch ppi to po 6. DVT ppx- EAM 7. requesting to go home. pending repeat Hgb can d/c home
--- NOTE | 2017-03-31 13:57 | PN ---
Progress Note (short form) - Note Progress Note: surgery pt seen and examined. ambulating, voiding, and tolerating diet. abd- soft, nt, incisions clean Laboratory Tests 03/31/17 08:30 WBC 14.7 H Hgb 7.0 L A/P Pod#1- surgically stable for d/c on regular diet. off abx. off narcotics. f/ u in about 2 weeks. [phone] ok to shower, ok to walk. ok to climb stairs. no lifting > 20lbs. 2 weeks off work.
--- NOTE | 2017-03-31 14:30 | PN ---
Progress Note, Physician History of Present Illness: stable some post op pain - Current Medication List Current Medications: Active Medications Enoxaparin Sodium (Lovenox -) 40 mg SQ DAILY [facility] Last Admin: 03/31/17 10:29 Dose: 40 mg Fentanyl (Sublimaze Injection -) 50 mcg IVPUSH [id number] PRN PRN Reason: PAIN-PACU ORDER X 4 DOSES ONLY Last Admin: 03/30/17 16:10 Dose: 50 mcg Hydromorphone HCl (Dilaudid Injection -) 0.5 mg IVPB Q3H PRN PRN Reason: PAIN LEVEL 6-10 Sodium Chloride (Normal Saline -) 1,000 mls @ 100 mls/hr IV ASDIR [facility] Last Admin: 03/30/17 18:15 Dose: 0 mls Ibuprofen (Caldolor Injection -) 800 mg IVPB Q6H PRN PRN Reason: Pain - Pacu Last Admin: 03/30/17 16:20 Dose: 800 mg Ondansetron HCl (Zofran Injection) 4 mg IVPUSH Q6H PRN PRN Reason: NAUSEA Oxycodone HCl (Roxicodone -) 7.5 mg PO Q4H PRN PRN Reason: PAIN LEVEL 1-5 Pantoprazole Sodium (Protonix Iv) 40 mg IVPUSH BID [facility] Last Admin: 03/31/17 10:29 Dose: 40 mg Piperacillin Sod/Tazobactam Sod (Zosyn 3.375gm Ivpb (Pre-Docked)) 3.375 gm IVPB Q6H [facility] PRN Reason: Protocol - Objective Vital Signs: Vital Signs Temperature 99.4 F 03/31/17 08:00 Pulse Rate 18 L 03/31/17 08:00 Respiratory Rate 84 H 03/31/17 08:00 Blood Pressure 111/63 03/31/17 08:00 O2 Sat by Pulse Oximetry (%) 96 03/31/17 08:00 Constitutional: Yes: Calm, Mild Distress Cardiovascular: Yes: Regular Rate and Rhythm Respiratory: Yes: Regular, CTA Bilaterally Gastrointestinal: Yes: Soft, Hypoactive Bowel Sounds Musculoskeletal: Yes: WNL Extremities: Yes: WNL Wound/Incision: Yes: Dressing Dry and Intact Neurological: Yes: Alert, Oriented Psychiatric: Yes: Alert, Oriented Labs: CBC, BMP 03/31/17 08:30 03/31/17 08:30 INR, PTT INR 1.19 (0.82-1.09) H 03/30/17 07:15 Assessment/Plan 36 y/o old female post op from cholecystectomy doing well cholecystectomy abd pain plan continue current mgmt rest as per primary team off of abx stable
[2017-03-31 16:04] LABS: HEMATOCRIT 22.1 % (32.4-45.2); MCHC 29.9 g/dl (32.0-36.0); MEAN CELL VOLUME 63.3 fl (80-96); MEAN PLT VOLUME 8.6 fl (7.5-11.1); PLATELET COUNT 333 K/MM3 (134-434); RDW 19.1 % (11.6-15.6); WHITE BLOOD COUNT 12.2 K/mm3 (4.0-10.0)
[2017-03-31 16:14] LABS: MCH 18.9 pg (25.7-33.7)
[2017-03-31 16:16] LABS: HEMOGLOBIN 6.6 GM/dL (10.7-15.3)
[2017-03-31] MEDS: SODIUM CHLORIDE 1,000 ML IV SCH (16:56)
[2017-03-31 22:09] LABS: HEMATOCRIT 25.8 % (32.4-45.2); MCH 20.3 pg (25.7-33.7); MEAN CELL VOLUME 65.6 fl (80-96); MEAN PLT VOLUME 8.5 fl (7.5-11.1); PLATELET COUNT 325 K/MM3 (134-434); RBC 3.93 M/mm3 (3.60-5.2); RDW 21.9 % (11.6-15.6)
[2017-04-01 09:07] LABS: HEMATOCRIT 27.9 % (32.4-45.2); HEMOGLOBIN 8.6 GM/dL (10.7-15.3); MCH 20.3 pg (25.7-33.7); MCHC 30.8 g/dl (32.0-36.0); MEAN CELL VOLUME 65.9 fl (80-96); MEAN PLT VOLUME 8.6 fl (7.5-11.1); PLATELET COUNT 321 K/MM3 (134-434); RBC 4.24 M/mm3 (3.60-5.2); WHITE BLOOD COUNT 9.9 K/mm3 (4.0-10.0)
--- NOTE | 2017-04-01 09:13 | PN ---
Progress Note (short form) - Note Progress Note: c/o mild discomfort at the surgical incision sites. denies CP, SOB< fever, chills, menses, BRBPR, hematuria or melena. +flatus. no BM Current Medications Generic Name Dose Route Start Last Admin Trade Name Freq PRN Reason Stop Dose Admin Enoxaparin Sodium 40 mg 03/31/17 10:00 03/31/17 10:29 Lovenox - SQ 40 mg DAILY [facility] Administration Fentanyl 50 mcg 03/30/17 15:57 03/30/17 16:10 Sublimaze Injection - IVPUSH 50 mcg [id number] PRN Administration PAIN-PACU ORDER X 4 DOSES ONLY Iron Sucrose 200 mg/ Sodium 250 mls @ 250 mls/hr 04/01/17 07:16 Chloride IVPB 04/01/17 08:15 ONCE ONE Ibuprofen 800 mg 03/30/17 15:57 03/30/17 16:20 Caldolor Injection - IVPB 800 mg Q6H PRN Administration Pain - Pacu Ondansetron HCl 4 mg 03/30/17 14:35 Zofran Injection IVPUSH Q6H PRN NAUSEA Oxycodone HCl 7.5 mg 03/30/17 14:35 Roxicodone - PO Q4H PRN PAIN LEVEL 1-5 Pantoprazole Sodium 40 mg 04/01/17 10:00 Protonix - PO DAILY [facility] Last Vital Signs Temp Pulse Resp BP Pulse Ox 98.3 F 77 24 109/61 98 04/01/17 05:00 04/01/17 05:00 04/01/17 05:00 04/01/17 05:00 03/31/17 21:00 General NAD CV S1 S2 RRR no murmur/rub/gallop Lungs CTA B/L no wheezing/rales/rhonchi Abdomen Soft surgical incisions iwth thaddeus in place. mild tenderness surrounding them CBCD WBC 9.9 K/mm3 (4.0-10.0) 04/01/17 08:30 RBC 4.24 M/mm3 (3.60-5.2) 04/01/17 08:30 Hgb 8.6 GM/dL (10.7-15.3) L 04/01/17 08:30 Hct 27.9 % (32.4-45.2) L 04/01/17 08:30 MCV 65.9 fl (80-96) L 04/01/17 08:30 MCHC 30.8 g/dl (32.0-36.0) L 04/01/17 08:30 RDW 22.0 % (11.6-15.6) H 04/01/17 08:30 Plt Count 321 K/MM3 (134-434) 04/01/17 08:30 MPV 8.6 fl (7.5-11.1) 04/01/17 08:30 ASSESSMENT AND PLAN: 36yo F wtih PMH PUD presented to the ER with abdominal pain 1. Acute Cholecystitis- s/p laprascopic cholecystectomy 03/30. no complications. off abx. further recommendations per surgery. will need to follow up with surgery in 2 weeks. pain control. 2. Acute iron deficiency anemia- no signs of bleeding. s/p 1 unit PRBC with appropriate response. Hgb now stable. s/p Venofer x1 dose. will give additional dose today. will need to go home on oral supplementation. recommend [employer] f/u. will need iron studies repeated in 3 months 3. Hypokalemia- resolved 4. Thrombocytosis- likely reactive. now resolved 5. PUD- will hold ppi 6. DVT ppx- EAM 7. d/c home Visit type - Emergency Visit Emergency Visit: Yes ED Registration Date: 03/29/17 Care time: The patient presented to the Emergency Department on the above date and was hospitalized for further evaluation of their emergent condition. - New Patient This patient is new to me today: No - Critical Care Critical Care patient: No - Discharge Referral Referred to [facility] No
[2017-04-01] MEDS: ENOXAPARIN NA (PORCINE) 40 MG/0.4 ML DISP.SYRIN SQ SCH (09:27)
[2017-04-01] MEDS ORDERED: IRON SUCROSE INJECTION 200 MG in SODIUM CHLORIDE 100 ML IVPB ONE (09:30)
[2017-04-01] MEDS ORDERED: PANTOPRAZOLE 40 MG TABLET (FP) PO SCH (10:00)
--- NOTE | 2017-04-01 11:08 | PN ---
Progress Note, Physician History of Present Illness: stable pain at operated site - Current Medication List Current Medications: Active Medications Enoxaparin Sodium (Lovenox -) 40 mg SQ DAILY [facility] Last Admin: 04/01/17 09:27 Dose: 40 mg Fentanyl (Sublimaze Injection -) 50 mcg IVPUSH [id number] PRN PRN Reason: PAIN-PACU ORDER X 4 DOSES ONLY Last Admin: 03/30/17 16:10 Dose: 50 mcg Ibuprofen (Caldolor Injection -) 800 mg IVPB Q6H PRN PRN Reason: Pain - Pacu Last Admin: 03/30/17 16:20 Dose: 800 mg Ondansetron HCl (Zofran Injection) 4 mg IVPUSH Q6H PRN PRN Reason: NAUSEA Oxycodone HCl (Roxicodone -) 7.5 mg PO Q4H PRN PRN Reason: PAIN LEVEL 1-5 Pantoprazole Sodium (Protonix -) 40 mg PO DAILY [facility] Last Admin: 04/01/17 09:27 Dose: 40 mg - Objective Vital Signs: Vital Signs Temperature 98.3 F 04/01/17 05:00 Pulse Rate 77 04/01/17 05:00 Respiratory Rate 24 04/01/17 05:00 Blood Pressure 109/61 04/01/17 05:00 O2 Sat by Pulse Oximetry (%) 98 03/31/17 21:00 Constitutional: Yes: Mild Distress Neck: Yes: Supple Cardiovascular: Yes: Regular Rate and Rhythm Respiratory: Yes: Regular, CTA Bilaterally Gastrointestinal: Yes: Normal Bowel Sounds, Soft Musculoskeletal: Yes: WNL Extremities: Yes: WNL Wound/Incision: Yes: Clean/Dry Neurological: Yes: Alert, Oriented Psychiatric: Yes: Alert Labs: CBC, BMP 04/01/17 08:30 03/31/17 08:30 INR, PTT INR 1.19 (0.82-1.09) H 03/30/17 07:15 Assessment/Plan 36 y/o old female post op from cholecystectomy doing well cholecystectomy abd pain plan continue current mgmt rest as per primary team off of abx stable
[2017-04-01 12:12] VITALS: BP 102/59; PULSE 82
[2017-04-01 13:51] VITALS: TEMP 99.3
--- NOTE | 2017-04-05 14:49 | PATH ---
Surgical Pathology Report Patient Name: COREY JENKINS Med. Rec. #: [id number] /Age/Gender: 1980 (Age: 36) / F Account: [id number] Location: [address] [place] [address]/[facility] Taken: 03/30/2017 Received: 03/31/2017 Reported: 04/05/2017 Physicians: Mikaela Meléndez M.D. Specimen(s) Received GALLBLADDER Clinical History Acute cholecystitis Final Diagnosis GALLBLADDER, LAPAROSCOPIC CHOLECYSTECTOMY: ACUTE AND CHRONIC CHOLECYSTITIS AND CHOLELITHIASIS. Electronically Signed Carlotta Matamoros M.D. Gross Description Received in formalin, labeled "gallbladder," is a 8.0 x 3.7 x 3.5 cm. gallbladder with a 0.2 cm. in length portion of cystic duct attached. The outer surface is woo and varies from smooth to shaggy. The lumen contains brown blood as well as a 3.5 cm greatest dimension brown, ovoid cholelith. The mucosa is brown, focally eroded and focally hyperemic. The wall of the gallbladder is focally edematous and ranges from 0.1-0.9 cm cm. in thickness. Customer Success Advocate sections are submitted in one cassette. /03/31/201703/31/2017
--- NOTE | 2017-04-10 20:10 | DS ---
Physical Exam: SUBJECTIVE: Patient seen and examined c/o mild discomfort at the surgical incision sites. denies CP, SOB< fever, chills, menses, BRBPR, hematuria or melena. +flatus. no BM OBJECTIVE: Last Vital Signs Temp Pulse Resp BP Pulse Ox 99.3 F 82 19 102/59 97 04/01/17 13:49 04/01/17 09:00 04/01/17 09:00 04/01/17 09:00 04/01/17 09:00 PHYSICAL EXAM General NAD CV S1 S2 RRR no murmur/rub/gallop Lungs CTA B/L no wheezing/rales/rhonchi Abdomen Soft surgical incisions iwth thaddeus in place. mild tenderness surrounding them LABS CBC, BMP 04/01/17 08:30 03/31/17 08:30 No micro EKG 03/29 - NSR, NAD, rate of 76, qtc 416, no st or tw changes RUQ US 03/29 - IMPRESSION: Findings suspicious for acute cholecystitis. Clinical correlation and follow-up recommended. CXR PA/lateral 03/29 - Normal HIDA scan 03/30 - No filling of gallbladder after 60 minutes of imaging. Please note that the study is essentially nondiagnostic due to early completion of the exam at the request of the surgeon. However when correlated with ultrasound of March 29, 2017, findings are suspicious for cystic duct obstruction and acute cholecystitis Consults: ID - seen by Dr. Wallis General Surgery - Seen by Dr. Betancourt [facility] COURSE: Prehospital course: Pt is a 36 y/o F with PMH recently treated gastric ulcer who presented to ED with RUQ pain initially 9/10 radiating to the back constant since 6pm yesterday. Pt had subjective fevers and numerous episodes of green vomit without blood. No other complaints. Denies CP, SOB, dysuria, bloody urine/stools. Hospital course: In ED, pt labs notable for WBC 18, Hb 8.5, plt 442, INR 1.1, UA 1+ ketones, Preg neg. RUQ U/S suggestive of cholecystitis. EKG unremarkable. CXR normal. Pt made NPO, given fluids and given one dose of Zosyn in ED. Lipase negative, LFTs normal, preg test negative, UA negative. Surgery and ID consulted. Day 2 of admission, pt seen by surgery, ordered of HIDA scan, with findings suggestive of cystic duct obstruction and w/ US findings, suggestive of acute cholecystitis. Pt later seen by ID that same day with plan for brief continuation of zosyn. Lab notable for microcytic anemia, hypokalemia. Pt taken to OR in PM on 03/30, with laparascopic cholecsytectomy performed by Dr. Betancourt. Procedure with no complications. POD1, pt only w/ mild surgical site pain, WBC continually downtrending to 14.7 and zosyn d/c'ed per ID. Hgb 7.0, with repeat PM CBC Hgb 6.6. Pt transfused one unit prbcs, with repeat cbc Hgb 8. Pt also given IV venofer on 03/31, and x1 on 04/01. WBC resolved to 9.9 on 04/01 , with Hgb 8.6. Pt with no post-op complications and abx d/c'ed. Pt discharged on 04/01 w/ outpt f/u with Dr. Betancourt in two weeks and oral iron supplementation with repeat CBC in one week and monitoring for any signs of bleeding or infection. Date of Admission:03/29/17 Date of Discharge: 04/10/17 Pt medically stable and cleared for discharge with post-op f/u with Dr. Betancourt in two weeks. Minutes to complete discharge: 35 Discharge Summary Reason For Visit: CHOLECYSTITIS Condition: Good - Instructions Diet, Activity, Other Instructions: During your stay you were treated for an infection in your gallbladder. Your gallbladder was surgically removed and your were given IV antibiotics to treat the infection Follow your doctor's instructions on cleaning the incision site. You do not need any antibiotics. For pain control, you can take Tylenol. Avoid NSAID (ibuprofen, aleive, motrin, naproxen, etc). Wash your hands before and after cleaning the incision site, or changing the dressing. Follow up with surgeon for staple removal. Keep the area clean and dry. It is ok to shower as usual. no lifting > 20lbs. 2 weeks off work. You were also found to have low blood counts due to iron deficiency as well as heavy periods. You are being started on iron supplementation. This medication can cause constipation and black stools. You should follow up with a supervisor/port director for evaluation of your heavy periods. Follow-ups: Please schedule an appointment to see your primary care physician in one week. You should have your blood counts checked. You will need iron studies repeated in 3 months. Please schedule a follow-up appointment with the surgeon who performed your gallbladder removal, Dr. Betancourt, in two weeks for a post-op check. He will remove your thaddeus. His contact information has been provided in this packet. Please call to schedule an appointment. Diet/activity: Please avoid food high in saturated fats and increase your intake of fruits and vegetable in order to increase your daily iron intake. Below is a list of fruits and vegetables high in iron. Please return to the hospital if you experience any of the following symptoms: - Blood in your stool - Persistent fevers >102 - chest pain/tightness - severe inflammation/drainage or swelling at the surgical site - Any new or concerning symptoms Referrals: Gilbert Hyatt MD [Staff Physician] - 1 Month (gyencologist) Mark Betancourt MD [Staff Physician] - 2 Weeks (surgeon) Disposition: HOME - Home Medications Comprehensive Discharge Medication List: Ambulatory Orders Ferrous Sulfate [Feosol] 325 mg PO DAILY #30 tablet 04/01/17 This patient is new to me today: No Emergency Visit: Yes ED Registration Date: 03/29/17 Care time: The patient presented to the Emergency Department on the above date and was hospitalized for further evaluation of their emergent condition. Critical Care patient: No - Discharge Referral Referred to [facility] No
== END 2017-04-01 16:00 | disposition home or self-care (01) | DRG 263 ==
LOC: JER 13:35 → JERBED 18:15 → J5S 21:24 → J6S 03-30 17:26
PROVIDERS: ADMIT Internal Medicine; ATTEND Internal Medicine
PROC: 0FT44ZZ Resection of Gallbladder, Percutaneous Endoscopic Approach (ICD-10-PCS; principal; 2017-03-30 14:00)
DX: K80.00 Calculus of gallbladder with acute cholecystitis without obstruction (principal); K27.9 Peptic ulcer, site unspecified, unspecified as acute or chronic, without hemorrhage or perforation; D50.9 Iron deficiency anemia, unspecified; D47.3 Essential (hemorrhagic) thrombocythemia; K82.1 Hydrops of gallbladder; E87.6 Hypokalemia
CPT/HCPCS: 36415; 36430; 71046-TC-FY; 76705-TC; 78226-TC; 80053; 81003; 82728; 83540; 83550; 83605; 83690; 83735; 84100; 84703; 85025; 85027; 85610; 85730; 86850; 86900; 86901; 86922; 88304-TC; 93005; 93010; 94760; 99283-25; A9537; J1756; P9038; P9058

== ENCOUNTER 2018-02-11 18:56 | Emergency (ER) | payer OTHER ==
[2018-02-11 19:03] VITALS: BP 122/77; PULSE 72; TEMP 97.9; BMI 29.1
--- NOTE | 2018-02-11 19:24 | PDOC ---
History of Present Illness - General Chief Complaint: Pain Stated Complaint: ABDOMINAL PAIN Time Seen by Provider: 02/11/18 19:18 - History of Present Illness Initial Comments: 02/11/18 19:20 37 yo F with h/o PUD, iron anemia deficiency, cholecystitis s/p cholecystectomy (03/2017) who p/w RUQ abdominal pain. 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 Patient reports 15 days of stable, non radiating, non pleuritic, crampy, intermittent, RUQ pain, with no identifiable triggers or alleviators. Also endorses nausea without vomiting x 15 days. Denies postprandial pain, change in appetitie. Nml bowel habits, with absent BPR. Denies OTC analgesia. Patient denies palpitations, wheezing, cough, F/C, CP, SOB, urinary complaints , BPR, hematuria, diarrhea, constipation, lightheadedness, weakness, sensory changes. PMHx: as noted above ROS: as noted SHx: Denies Etoh, tobacco, IVDA Allergies: NKDA Past History - Past Medical History Allergies/Adverse Reactions: Allergies Allergy/AdvReac Type Severity Reaction Status Date / Time No Known Allergies Allergy Verified 02/11/18 19:03 Home Medications: Ambulatory Orders Ranitidine [Zantac -] 150 mg PO BID PRN #30 tablet MDD 2 tab 02/11/18 COPD: No GI Disorders: Yes (ULCERS, Gall bladder removal 06/2017) - Surgical History Abdominal Surgery: Yes - Suicide/Smoking/Psychosocial Hx Smoking History: Never smoked Have you smoked in the past 12 months: No Information on smoking cessation initiated: No Hx Alcohol Use: No Drug/Substance Use Hx: No Substance Use Type: None Review of Systems - Review of Systems Comments:: 02/11/18 19:22 GENERAL/CONSTITUTIONAL: No fever or chills. No weakness. HEAD, EYES, EARS, NOSE AND THROAT: No change in vision. No ear pain or discharge. No sore throat. CARDIOVASCULAR: No chest pain or shortness of breath RESPIRATORY: No cough, wheezing, or hemoptysis. GASTROINTESTINAL: + RUQ abdominal pain, nausea. No diarrhea or constipation. GENITOURINARY: No dysuria, frequency, or change in urination. MUSCULOSKELETAL: No joint or muscle swelling or pain. No neck or back pain. SKIN: No rash NEUROLOGIC: No headache, vertigo, loss of consciousness, or change in strength/ sensation. ENDOCRINE: No increased thirst. No abnormal weight change HEMATOLOGIC/LYMPHATIC: No anemia, easy bleeding, or history of blood clots. ALLERGIC/IMMUNOLOGIC: No hives or skin allergy. *Physical Exam - Vital Signs Last Vital Signs Temp Pulse Resp BP Pulse Ox 97.9 F 72 16 122/77 99 02/11/18 19:01 02/11/18 19:01 02/11/18 19:01 02/11/18 19:01 02/11/18 19:01 - Physical Exam Comments: 02/11/18 19:22 GENERAL: Awake, alert, and fully oriented, in no acute distress HEAD: No signs of trauma, normocephalic, atraumatic EYES: PERRLA, EOMI, sclera anicteric, conjunctiva clear ENT: Hearing grossly normal, nares patent, oropharynx clear without exudates. Moist mucosa NECK: Normal ROM, supple, no lymphadenopathy, JVD, or masses LUNGS: No distress, speaks full sentences, clear to auscultation bilaterally HEART: Regular rate and rhythm, normal S1 and S2, no murmurs, rubs or gallops, peripheral pulses normal and equal bilaterally. ABDOMEN: + RUQ ttp. Soft, NDS, normoactive bowel sounds. No guarding, no rebound, no rigidity. No masses. Neg CVA ttp. EXTREMITIES : Normal inspection, Normal range of motion, no edema. No clubbing or cyanosis. SKIN: Warm, Dry, normal turgor, no rashes or lesions noted Moderate Sedation - Procedure Monitoring Vital Signs: Procedure Monitoring Vital Signs Temperature 97.9 F 02/11/18 19:01 Pulse Rate 72 02/11/18 19:01 Respiratory Rate 16 02/11/18 19:01 Blood Pressure 122/77 02/11/18 19:01 O2 Sat by Pulse Oximetry (%) 99 02/11/18 19:01 ED Treatment Course - LABORATORY CBC & Chemistry Diagram: 02/11/18 22:05 02/11/18 22:05 Medical Decision Making - Medical Decision Making 02/11/18 19:49 37 yo F with h/o PUD, iron anemia deficiency, cholecystitis s/p cholecystectomy (03/2017) who p/w RUQ abdominal pain. VSS, A, + RUQ ttp. Physical exam otherwise unremarkable. Will consider choledocolithiasis, gastritis, esophagitis , pancreatitis, gastroenteritis. Low suspicion appendicitis, ovarian pathology, pyelonephritis, AAA, Ao dissection, pericarditits. 02/11/18 19:50 ED Course: CBC, CMP, Lipase EKG Marily Velasquez, SCOUT 02/11/18 19:56 Ranitidine sent to pharmacy. Patient counseled on GI follow up. 02/11/18 23:47 CMP: Unremarkable UA: 3 + Blood, 2 RBC Denies urinary complaints, and currently menstruating 02/11/18 23:51 02/12/18 01:41 CK: 89 CT SPIRAL: Unremarkable RUQ U/S: Unremarkable Patient pain improved. Stable for d/c with return precautions *DC/Admit/Observation/Transfer Diagnosis at time of Disposition: RUQ abdominal pain - Discharge Dispostion Disposition: HOME Condition at time of disposition: Stable Decision to Admit order: No - Prescriptions Prescriptions: Ranitidine [Zantac -] 150 mg PO BID PRN #30 tablet MDD 2 tab PRN Reason: Indigestion - Referrals Referrals: Gonsalo Valdez DO [Staff Physician] - - Patient Instructions Printed Discharge Instructions: DI for Epigastric Pain Additional Instructions: Please return to the emergency department with any new or worsening symptoms or concerns. Please follow up with your primary care physician within 72 hours. Please follow up with gastroenterology within 48 hours. Take Ranitidine as needed for symptoms. - Post Discharge Activity - Attestations Physician Attestion: 02/11/18 19:23 I attest to the information provided in this note.
[2018-02-11] MEDS ORDERED: SODIUM CHLORIDE 0.9% 500 ML INFUS.BAG IV ONE (19:44)
[2018-02-11] MEDS ORDERED: ONDANSETRON 4 MG/2 ML VIAL IVPB ONE (19:44)
[2018-02-11] MEDS ORDERED: SUCRALFATE 1 GM TABLET (FP) PO ONE (19:44)
[2018-02-11] MEDS ORDERED: MAG HYDROX/AL HYDROX/SIMETH 30 ML UNIT-DOSE CUP PO ONE (19:44)
[2018-02-11] MEDS ORDERED: FAMOTIDINE 20 MG/50 ML IVPB 20 MG/50 ML MG IVPB ONE ×2 (19:44→21:03)
--- NOTE | 2018-02-11 20:06 | PDOC ---
Attending Attestation - HPI HPI: 02/11/18 20:06 The patient is a 37 year old female, with a significant past medical history of peptic ulcer disease, cholecystectomy (March 2017), iron deficiency anemia, who presents to the emergency department with stable, intermittent crampy right upper abdominal pain for about 15 days. She denies association with food. She states she ate rice, ham and salad today. She reports associated nausea, but denies vomiting. She denies taking any OTC medications for her symptoms. The patient denies chest pain, shortness of breath, headache and dizziness. The patient denies fever, chills, vomit, diarrhea and constipation. The patient denies dysuria, frequency, urgency and hematuria. Allergies: NKDA - Physicial Exam PE: 02/11/18 20:06 GENERAL: Awake, alert, and fully oriented, in no acute distress HEAD: No signs of trauma EYES: PERRLA, EOMI, sclera anicteric, conjunctiva clear ENT: Auricles normal inspection, hearing grossly normal, nares patent, oropharynx clear without exudates. Moist mucosa NECK: Normal ROM, supple, no lymphadenopathy, JVD, or masses LUNGS: Breath sounds equal, clear to auscultation bilaterally. No wheezes, and no crackles HEART: Regular rate and rhythm, normal S1 and S2, no murmurs, rubs or gallops ABDOMEN: (+) RUQ has mild tenderness on palpation. hyperactive BS in the right upper quadrant. Soft, normoactive bowel sounds. No guarding, no rebound. No masses EXTREMITIES: Normal range of motion, no edema. No clubbing or cyanosis. No cords, erythema, or tenderness NEUROLOGICAL: Cranial nerves II through XII grossly intact. Normal speech, normal gait SKIN: Warm, Dry, normal turgor, no rashes or lesions noted. - Medical Decision Making 02/11/18 20:06 Documentation prepared by Ligia Alvarado, acting as product manager medical device for Cathy Cronin MD <Ligia Alvarado - Last Filed: 02/11/18 20:24> - Resident Resident Name: Elie Tyler - ED Attending Attestation I have performed the following: I have examined & evaluated the patient, The case was reviewed & discussed with the resident, I agree w/resident's findings & plan - Medical Decision Making 02/11/18 20:30 Pt comes with RUQ pain x 15 days. The pain is constant and unrelated to meals. She has no fever. She has no nausea or vomiting. She has no diarrhea or dysuria. PMHx includes a c section. Cholecystectomy in May 2017. No fever; pt appears well. She is very gassy. States all she ate all day was rice and salad and ham. 02/11/18 20:33 Vitals are normal. Exam is normal. Just a lot of gas in the RUQ. 02/11/18 21:54 Pt's labs are all hemolyzed; we are awaiting repeat results. 02/11/18 22:25 WBC is 11; Hb/HCT stable 02/11/18 23:32 Chem is normal. She has 3+ RBC in the urine and she will be sent for spiral CT scan 02/12/18 00:19 Patient Name: TISHA COLLIER THIS IS A PRELIMINARY REPORT FROM [facility] DATE OF SERVICE: 2018-02-11 23:44:39 IMAGES: [id number] EXAM: CT abdomen and pelvis without contrast HISTORY: Concern for stone COMPARISON: None. FINDINGS: Abdomen Liver: Normal Spleen: Normal Pancreas: Normal CONFIDENTIALITY NOTICE: This information is intended [address] [facility] [address] [place] [address] Phone: [phone]) Fax: Email: [email or web address] Patient Information: : 1980 Order Type: Preliminary Name: NANDO NICOLE Sex: F Study Description: CT ABDOMEN AND PELVIS Modality: CT Location: [facility] Referring Physician: KAZ GOODSON Gallbladder: Surgically absent Stomach: Normal Small bowel: Normal Large bowel: Normal Appendix: Normal Adrenals:Normal Kidneys: Normal Vascular: Normal Lymphatic: Normal Peritoneal: No free peritoneal air or fluid Pelvis: Uterus: normal Rectum: Normal Bladder: Normal The inferior thorax: Normal General: Skeletal: Normal Abdominal wall: Normal IMPRESSION: No acute findings Patient Name: TISHA COLLIER THIS IS A PRELIMINARY REPORT FROM [facility] DATE OF SERVICE: 2018-02-11 22:11:31 IMAGES: 42 EXAM: ABDOMEN US -LIMITED HISTORY: Right upper quadrant pain COMPARISON: None. FINDINGS: The liver is normal Right kidney is normal. Gallbladder is surgically absent. Common bile duct is 3 mm. Pancreas is normal. Inferior vena cava and aorta are normal IMPRESSION: No acute findings 02/12/18 00:27 Pt is stable for discharge home. <Cathy Cronin - Last Filed: 02/12/18 00:27>
[2018-02-11] MEDS ORDERED: SUCRALFATE 1 GM TABLET (FP) ONE (20:13)
[2018-02-11] MEDS ORDERED: MAG HYDROX/AL HYDROX/SIMETH 30 ML UNIT-DOSE CUP ONE (20:14)
[2018-02-11] MEDS ORDERED: ONDANSETRON 4 MG/2 ML VIAL ONE (21:03)
[2018-02-11 22:16] LABS: BASO % 0.7 % (0-2.0); EOS % 2.1 % (0-4.5); HEMOGLOBIN 10.4 GM/dL (10.7-15.3); LYMPH % 26.7 % (8-40); MCHC 33.4 g/dl (32.0-36.0); MEAN PLT VOLUME 8.5 fl (7.5-11.1); MONO % 7.1 % (3.8-10.2); NEUT % 63.4 % (42.8-82.8); PLATELET COUNT 307 K/MM3 (134-434); RBC 4.14 M/mm3 (3.60-5.2); RDW 16.5 % (11.6-15.6); WHITE BLOOD COUNT 11.1 K/mm3 (4.0-10.0)
[2018-02-11 22:46] LABS: ANION GAP 6 MMOL/L (8-16); BLOOD UREA NITROGEN 13 mg/dL (7-18); CALCIUM 8.2 mg/dL (8.5-10.1); CHLORIDE 112 mmol/L (98-107); CO2 23 mmol/L (21-32); CREATININE 0.6 mg/dL (0.55-1.3); GLUCOSE,RANDOM 85 mg/dL (74-106); POTASSIUM 3.7 mmol/L (3.5-5.1); SODIUM 141 mmol/L (136-145)
[2018-02-11 22:47] LABS: ALBUMIN 3.6 g/dl (3.4-5.0); ALK PHOS 79 U/L (45-117); BILIRUBIN,TOTAL 0.1 mg/dL (0.2-1); SGOT/AST 11 U/L (15-37); SGPT/ALT 16 U/L (13-61)
[2018-02-11 23:13] LABS: URINE APPEARANCE CLEAR; URINE BILIRUBIN NEGATIVE (<2.0 mg/dL); URINE COLOR LTYELLOW; URINE GLUCOSE (UA) NEGATIVE (NEGATIVE); URINE KETONE NEGATIVE (NEGATIVE); URINE LEUK ESTERASE TRACE (NEGATIVE); URINE NITRITE NEGATIVE (NEGATIVE); URINE PROTEIN NEGATIVE (NEGATIVE); URINE UROBILINOGEN NEGATIVE mg/dL (0.2-1.0)
[2018-02-11 23:20] LABS: EPI CELLS RARE /HPF (FEW); URINE MUCUS RARE
[2018-02-12] MEDS ORDERED: DIPHTH,PERTUSS(ACELL),TET 0.5 ML DISP.SYRIN IM ONE (00:06)
--- NOTE | 2018-02-12 15:19 | EKG ---
Test Reason : Blood Pressure : / mmHG Vent. Rate : 079 BPM Atrial Rate : 079 BPM P-R Int : 168 ms QRS Dur : 072 ms QT Int : 370 ms P-R-T Axes : 034 069 030 degrees QTc Int : 424 ms NORMAL SINUS RHYTHM SEPTAL INFARCT (CITED ON OR BEFORE 29-MAR-2017) ABNORMAL ECG WHEN COMPARED WITH ECG OF 29-MAR-2017 20:24, T WAVE VARIATION Confirmed by MADDISON NIEVES MD ([id number]) on 02/12/2018 3:19:09 PM Referred By: Confirmed By:MADDISON NIEVES MD
== END 2018-02-12 00:33 | disposition home or self-care (01) ==
LOC: JER 18:56
PROC: 3E033GC Introduction of Other Therapeutic Substance into Peripheral Vein, Percutaneous Approach (ICD-10-PCS; principal; 2018-02-11)
PROC: 3E0337Z Introduction of Electrolytic and Water Balance Substance into Peripheral Vein, Percutaneous Approach (ICD-10-PCS; 2018-02-11)
DX: R10.11 Right upper quadrant pain (principal); D50.9 Iron deficiency anemia, unspecified
CPT/HCPCS: 36415; 74176; 76705-TC; 80053; 81003; 81015; 82550; 83690; 84484; 84703; 85025; 93005; 93010; 99282-25

== ENCOUNTER 2019-02-01 19:24 | Emergency (ER) | payer OTHER ==
[2019-02-01 20:00] VITALS: BP 172/73; PULSE 81; TEMP 98.5
--- NOTE | 2019-02-02 00:32 | PDOC ---
History of Present Illness - General Chief Complaint: Pain Stated Complaint: ABD PAIN Time Seen by Provider: 02/01/19 22:42 History Source: Patient Exam Limitations: No Limitations Past History - Past Medical History Allergies/Adverse Reactions: Allergies Allergy/AdvReac Type Severity Reaction Status Date / Time No Known Allergies Allergy Verified 02/01/19 20:49 Home Medications: Ambulatory Orders Ranitidine [Zantac -] 150 mg PO BID PRN #30 tablet MDD 2 tab 02/11/18 COPD: No GI Disorders: Yes (ULCERS, Gall bladder removal 06/2017) - Surgical History Abdominal Surgery: Yes - Psycho Social/Smoking Cessation Hx Smoking History: Never smoked Have you smoked in the past 12 months: No Hx Alcohol Use: No Drug/Substance Use Hx: No Substance Use Type: None *Physical Exam - Vital Signs Last Vital Signs Temp Pulse Resp BP Pulse Ox 98.5 F 81 19 172/73 H 100 02/01/19 19:55 02/01/19 19:55 02/01/19 19:55 02/01/19 19:55 02/01/19 19:55 - Physical Exam General Appearance: No: Apparent Distress Respiratory/Chest: positive: Lungs Clear, Normal Breath Sounds. negative: Respiratory Distress Cardiovascular: positive: Regular Rhythm, Regular Rate, S1, S2. negative: Murmur Gastrointestinal/Abdominal: positive: Tender (minimal TTP along RUQ), Soft. negative: Distended, Guarding, Rebound, Hernia Musculoskeletal: negative: CVA Tenderness Neurologic: positive: Alert, Normal Mood/Affect ED Treatment Course - RADIOLOGY Radiology Studies Ordered: Category Date Time Status ABDOMEN US -LIMITED [US] Stat Ultrasound 02/01/19 22:49 Taken Medical Decision Making - Medical Decision Making 38 y/o F hx of cholecystectomy 2018 presents with RUQ pain x 1 week, not associated with food intake. Denies fever, sob, cp, n/v/d, urinary sxs. Does not feel like pain from last year when she had gallbladder removed. RUQ sono - FINDINGS Patient is status post cholecystectomy. Normal common bile duct measuring 2.6 mm in diameter. No right hydronephrosis. No right upper quadrant free fluid. Normal liver. No concern for obstructed stone given normal appearing CBD Patient otherwise appears well Return precautions given stable for dc 02/02/19 00:29 Discharge - Discharge Information Problems reviewed: Yes Clinical Impression/Diagnosis: Right upper quadrant pain Condition: Stable Disposition: HOME - Admission No - Additional Discharge Information Prescription Drug Monitoring Program (I-STOP) results: I-STOP not reviewed - Follow up/Referral - Patient Discharge Instructions Patient Printed Discharge Instructions: DI for Abdominal Pain-Adult Additional Instructions: Thank you for choosing [facility]. It was a pleasure taking care of you. Please follow-up with your regular doctor in 2-3 days Return to the Emergency Department if your symptoms worsen or persist or have other concerning symptoms. Print Language: KAZAKH - Post Discharge Activity
[2019-02-02] MEDS ORDERED: ACETAMINOPHEN 325 MG TABLET (FP) PO ONE (00:33)
[2019-02-02] MEDS ORDERED: ACETAMINOPHEN 325 MG TABLET (FP) ONE (00:42)
== END 2019-02-02 00:45 | disposition home or self-care (01) ==
LOC: JER 19:24
DX: R10.11 Right upper quadrant pain (principal); Z87.19 Personal history of other diseases of the digestive system; Z90.49 Acquired absence of other specified parts of digestive tract
CPT/HCPCS: 76705-TC; 99282-25

== ENCOUNTER 2022-10-22 11:48 | Day surgery (SDC) | payer OTHER ==
[2022-10-22] MEDS ORDERED: FERRIC CARBOXYMALTOSE 750 MG in SODIUM CHLORIDE 250 ML IVPB SCH (12:15)
[2022-10-22 13:12] VITALS: BP 124/65; PULSE 70; RESP 18; TEMP 98.4
== END 2022-10-22 13:13 | disposition home or self-care (01) ==
LOC: FINFUSION 11:48 → FM/S 11:48 → FINFUSION 13:13
PROVIDERS: ATTEND Family Medicine
PROC: 3E033GC Introduction of Other Therapeutic Substance into Peripheral Vein, Percutaneous Approach (ICD-10-PCS; principal; 2022-10-22)
DX: D50.9 Iron deficiency anemia, unspecified (principal)
CPT/HCPCS: 96365; J1439

== ENCOUNTER 2022-10-29 11:55 | Day surgery (SDC) | payer OTHER ==
[2022-10-29] MEDS ORDERED: FERRIC CARBOXYMALTOSE 750 MG in SODIUM CHLORIDE 250 ML IVPB SCH (12:15)
[2022-10-29 12:21] VITALS: PULSE 67; RESP 18; TEMP 98.4
[2022-10-29 13:36] VITALS: BP 106/58
== END 2022-10-29 13:39 | disposition home or self-care (01) ==
LOC: FINFUSION 11:55 → FM/S 11:58 → FINFUSION 13:39
PROVIDERS: ATTEND Family Medicine
PROC: 3E033GC Introduction of Other Therapeutic Substance into Peripheral Vein, Percutaneous Approach (ICD-10-PCS; principal; 2022-10-29)
DX: D50.9 Iron deficiency anemia, unspecified (principal)
CPT/HCPCS: 81025; 96365; J1439